=== PATIENT | male | born 1990 | race Caucasian/White ===

== ENCOUNTER 2016-06-10 13:39 | Emergency (ER) | payer OTHER, MEDICAID ==
[2016-06-10 13:51] VITALS: TEMP 98.1
--- NOTE | 2016-06-10 13:55 | CPEKG ---
Heart Rate: 75 RR Interval: 800 P-R Interval: 116 QRSD Interval: 78 QT Interval: 400 QTC Interval: 447 P [place]: 7 QRS [place]: 24 T Wave [place]: 12 EKG Severity - BORDERLINE ECG - EKG Impression: SINUS RHYTHM EKG Impression: INFERIOR Q WAVES, PROBABLY NORMAL VARIATION Electronically Signed By: Cresencio Tucker 10-Jun-2016 17:24:57
[2016-06-10 14:25] LABS: % IMMATURE GRANULYOCYTES 0.4 % (0.0-1.1); ABSOLUTE IMMATURE GRANULOCYTES 0.02 10^3/uL (0.00-0.10); ADD DIFF? NO; ADD MORPH? NO; ADD SCAN? NO; ATYPICAL LYMPHOCYTE FLAG 50 (0-99); FRAGMENT RBC FLAG 20 (0-99); HEMATOCRIT 29.3 % (40.0-51.0); HEMOGLOBIN 8.8 g/dL (13.7-17.5); LEFT SHIFT FLG 0 (0-99); LIPEMIA HEMOLYSIS FLAG 80 (0-99); MEAN CELL HEMOGLOBIN 21.2 pg (27.9-34.1); MEAN CELL VOLUME 70.6 fL (81.5-99.8); MEAN PLATELET VOLUME 11.7 fL (8.7-11.7); PLATELET CLUMPS FLAG 0 (0-99); PLATELET COUNT 191 10^3/uL (150-400); RED BLOOD CELL COUNT 4.15 10^6/uL (4.40-6.38); RED CELL DISTRIBUTION WIDTH 17.9 % (11.5-15.2)
[2016-06-10] MEDS ORDERED: LORazepam 2 MG/ML INJ IVP ONE (14:40)
[2016-06-10] MEDS ORDERED: KETOROLAC 30 MG/1 ML SDV IVP ONE (14:40)
--- NOTE | 2016-06-10 14:40 | EDPHY ---
H & P Time Seen by Provider: 06/10/16 14:09 HPI/ROS: Chief complaint. Chest pain HPI. 26-year-old male constant chest discomfort since yesterday. Denies trauma. The pain is behind his sternum and feels spasm. Some nausea. He notes that the discomfort goes to his left arm. It is worse with deep breathing. No fever cough. He has had similar symptoms previously usually relieved by Xanax. No unusual leg pain swelling. ROS Constitutional. no fever/chills, no weakness Eyes. no problems with vision ENT. no sore throat, no nasal drainage Cardiovascular. Chest pain Respiratory. no shortness of breath, no cough Abdominal. Nausea . no problems urinating MS. no calf pain/swelling, no neck/back pain, no joint pain Skin. no rash Lymph. no swollen glands Neuro. no headache, no dizziness, no difficulty walking or with speech Past Medical/Surgical History: Past medical history cerebral palsy, intermittent chest pain, depression, migraines, anxiety, PTSD Social History: Single, nonsmoker, no alcohol Smoking Status: Never smoked Physical Exam: General Appearance: Alert well-developed male mild distress vital signs are stable Eyes: Pupils equal and round no pallor or injection. ENT, Mouth: Mucous membranes are moist. Respiratory: There are no retractions, lungs are clear to auscultation. Cardiovascular: Regular rate and rhythm. Chest wall is tender to palpation over the sternum and recreates the patient's symptoms Gastrointestinal: Abdomen is soft and nontender, no masses, bowel sounds normal. Neurological: Awake and alert, sensory and motor exams grossly normal. Skin: Warm and dry, no rashes. Musculoskeletal: Neck is supple nontender. Extremities symmetrical, full range of motion. Psychiatric: Patient is oriented X 3, there is no agitation. Constitutional: Initial Vital Signs Temperature (C) 36.7 C 06/10/16 13:48 Heart Rate 72 06/10/16 13:48 Respiratory Rate 16 06/10/16 13:48 Blood Pressure 110/67 06/10/16 13:48 O2 Sat (%) 97 06/10/16 13:48 O2 Delivery Mode Room Air Allergies/Adverse Reactions: Penicillins Allergy (Verified 04/25/16 15:17) Home Medications: Medication Instructions Recorded MOTRIN 04/04/15 Tylenol 04/04/15 Prozac 10 MG (RX) 04/20/15 Zofrsulema 06/27/15 Ryan 05/21/16 Medical Decision Making - Diagnostics EKG Interpretation: EKG interpreted by me shows normal sinus rhythm with normal interval and axis. QRS is otherwise normal without with appearance of LVH by voltage. No significant ST elevation or depression. No arrhythmia. The rate is 75 Imaging: CT scan chest shows an indeterminate angiogram reviewed with both Dr. Steiner and Shanita. Ultrasound of both legs shows no evidence for DVT Procedures: IV normal saline. Ativan and Toradol IV ED Course/Re-evaluation: Re-evaluation patient is stable and actually feeling better. My suspicion for PE is relatively low. He is not tachycardic or hypoxic. He has tenderness on his sternum to palpation at recreates his pain. We will perform bilateral leg ultrasounds. The patient is really not a good candidate for anticoagulation re-evaluation at 5:45 p.m.. Patient is stable. Patient and I discussed imaging lab results. We discussed treatment plan including criteria for return importance of follow-up and further evaluation. He expresses understanding Differential Diagnosis: I considered acute coronary syndrome, pneumonia, pulmonary embolus. Patient is tender to palpation of the sternum recreating his symptoms. My suspicion for pulmonary embolus is low. This is likely musculoskeletal - Data Points Laboratory Results: Laboratory Results 06/10/16 14:15 06/10/16 14:15 06/10/16 06/10/16 16:55 14:15 WBC 4.79 10^3/uL (3.80-9.50) RBC 4.15 L 10^6/uL (4.40-6.38) Hgb 8.8 L g/dL (13.7-17.5) Hct 29.3 L % (40.0-51.0) MCV 70.6 L fL (81.5-99.8) MCH 21.2 L pg (27.9-34.1) MCHC 30.0 L g/dL (32.4-36.7) RDW 17.9 H % (11.5-15.2) Plt Count 191 10^3/uL (150-400) MPV 11.7 fL (8.7-11.7) Neut % (Auto) 65.2 % (39.3-74.2) Lymph % (Auto) 27.1 % (15.0-45.0) [place] % (Auto) 5.6 % (4.5-13.0) Eos % (Auto) 1.5 % (0.6-7.6) Baso % (Auto) 0.2 L % (0.3-1.7) Nucleat RBC Rel Count 0.0 % (0.0-0.2) Absolute Neuts (auto) 3.12 10^3/uL (1.70-6.50) Absolute Lymphs (auto) 1.30 10^3/uL (1.00-3.00) Absolute Monos (auto) 0.27 L 10^3/uL (0.30-0.80) Absolute Eos (auto) 0.07 10^3/uL (0.03-0.40) Absolute Basos (auto) 0.01 L 10^3/uL (0.02-0.10) Absolute Nucleated RBC 0.00 10^3/uL (0-0.01) Immature Gran % 0.4 % (0.0-1.1) Immature Gran # 0.02 10^3/uL (0.00-0.10) D-Dimer 0.51 H ug/mLFEU (0.00-0.50) Sodium 145 H mEq/L (134-144) Potassium 4.3 mEq/L (3.5-5.2) Chloride 108 mEq/L (97-110) Carbon Dioxide 24 mEq/l (22-31) Anion Gap 13 mEq/L (8-16) BUN 12 mg/dL (7-23) Creatinine 0.5 L mg/dL (0.7-1.3) Estimated GFR > 60 Glucose 81 mg/dL (70-100) Calcium 8.8 mg/dL (8.5-10.4) Troponin I < 0.012 ng/mL < 0.012 ng/mL (0-0.034) (0-0.034) Medications Given: Discontinued Medications Sodium Chloride (Ns) 1,000 mls @ 0 mls/hr IV ONCE ONE PRN Reason: Wide Open Stop: 06/10/16 15:31 Last Admin: 06/10/16 16:22 Dose: 1,000 mls Ketorolac Tromethamine (Toradol) 30 mg IVP EDNOW ONE Stop: 06/10/16 14:41 Last Admin: 06/10/16 15:10 Dose: 30 mg Lorazepam (Ativan Injection) 1 mg IVP EDNOW ONE Stop: 06/10/16 14:41 Last Admin: 06/10/16 15:10 Dose: 1 mg Departure - Departure Disposition: Home, Routine, Self-Care Clinical Impression: Chest wall pain Condition: Good Instructions: Chest Wall Pain (ED) Additional Instructions: Ibuprofen 400 mg every 6 hours for discomfort. Return for worsening pain, breathing. Follow up with your regular physician in [place] on Sunday without fail.
[2016-06-10 14:44] LABS: ANION GAP 13 mEq/L (8-16); CALCIUM 8.8 mg/dL (8.5-10.4); CARBON DIOXIDE 24 mEq/l (22-31); CHLORIDE 108 mEq/L (97-110); CREATININE 0.5 mg/dL (0.7-1.3); GLOMERULAR FILTRATION RATE > 60; GLUCOSE 81 mg/dL (70-100); POTASSIUM 4.3 mEq/L (3.5-5.2); SODIUM 145 mEq/L (134-144)
[2016-06-10 14:56] LABS: TROPONIN I < 0.012 ng/mL (0-0.034)
[2016-06-10] MEDS ORDERED: NS 1,000 ML IV ONE (15:30)
[2016-06-10] MEDS ORDERED: IOPAMIDOL (ISOVUE 370) 75 ML BTL IV ONE (15:34)
--- NOTE | 2016-06-10 15:55 | DX ---
PA and Lateral Chest History: Chest pain. Findings: The heart and mediastinum are normal. Pulmonary vascularity is normal. The lungs are clear. There is no pleural fluid. A pneumothorax is not identified. Rods and pedicle screws extend from T4 caudally into the lumbar region. Impression: Chest negative for acute abnormality. Postoperative changes are seen. Specifically, a sindy rce for chest pain is not identified.
--- NOTE | 2016-06-10 16:27 | CT ---
CT Pulmonary Angiogram Clinical Indications: Possible shortness of breath and chest pain in a 26-year-old male with cervica l palsy; accurate clinical history is difficult to obtain. Technique: Thinly collimated multidetector helical CT imaging was performed through the chest while 90 mL of Isovue-370 were injected intravenously without complication. The images were obtained at 4 mm thickness and reconstructed at 1.5 mm thickness. Sagittal and coronal reconstructions were perform ed. The examination is reviewed on the workstation by the interpreting physician at multiple window/l evel settings. The study is significantly compromised by the patient's inability to fully cooperate w ith the study. There is breathing motion artifact. Additionally there is beam-hardening artifact rela lois to the extensive spinal hardware. Dose reduction techniques were utilized. Findings: Chest: Heart size is normal. No pericardial or pleural effusions are seen. Hilar and mediastinal co ntours are normal. There are no masses or noncalcified pulmonary nodules. There is a scoliotic curvat ure end rods and pedicle screws are seen in the thoracic spine. There is pleural thickening along the posterior left hemithorax. There are a few scattered areas of ground-glass opacity. The upper abdomen is negative for acute abnormality on this arterial phase study. CT Pulmonary Angiogram: The pulmonary arterial system is well opacified. No intraluminal filling d efects are seen to suggest acute or chronic thrombopulmonary embolic disease. No vascular malformatio ns are seen. The thoracic aorta has a normal contour without evidence of aneurysm or dissection. Impression: 1. The examination is nondiagnostic due to motion and beam hardening artifact. There is no definite c onvincing evidence of pulmonary embolic disease. 2. See above report for additional findings. A preliminary report was called to Dr. Cresencio Tucker 1620 hours in the Emergency Department.
--- NOTE | 2016-06-10 17:44 | US ---
Bilateral Lower Extremity Venous Duplex Doppler Study Clinical Indications: 26-year-old male with cerebral palsy and chest pain, and a nondiagnostic CTPA. Rule out DVT. Technique: A high-frequency transducer was used for compression imaging and Doppler study of the haley p veins of both legs, from the upper calves to the groins. Pulsed Doppler and color Doppler were util ized, along with various maneuvers to assess flow in the deep veins. The executive talent acquisition consultant indicated the st udy was technically limited secondary to the patient's CP and leg contractures, and it was difficult to do compression. Comparison Study: None. Findings: Right Leg: The deep veins of the groin, thigh, knee, and upper calf are displayed, and compressible. Doppler flow patterns are unremarkable. There is no evidence of deep venous thrombosis. Left Leg: The deep veins of the groin, thigh, knee, and upper calf are displayed and compressible. Doppler flow patterns are unremarkable. There is no evidence of deep venous thrombosis. There is normal compression of the greater saphenous veins, without superficial thrombosis. The popli teal fossa is unremarkable. Impression: The study is technically limited, but there is no sonographic evidence of right or left leg DVT. Results were called to Dr. Cresencio Tucker. A test result has been communicated to a licensed care provider and documented in [employer], 5:41:38 PM , 06/10/2016, [employer] Message ID [id number].
[2016-06-10 18:30] VITALS: BP 110/75; PULSE 85; RESP 12; O2SAT 98
== END 2016-06-10 18:28 | disposition home or self-care (01) ==
LOC: EDUNIT#
DX: R07.89 Other chest pain (principal)
CPT/HCPCS: 71010; 71275; 93005; 93970; 96374; 96375; 99285; J1885

== ENCOUNTER 2016-06-13 14:43 | Emergency (ER) | payer OTHER, MEDICAID ==
--- NOTE | 2016-06-13 14:55 | CPEKG ---
Heart Rate: 78 RR Interval: 769 P-R Interval: 128 QRSD Interval: 76 QT Interval: 376 QTC Interval: 429 P [place]: 11 QRS [place]: 32 T Wave [place]: 12 EKG Severity - ABNORMAL ECG - EKG Impression: SINUS RHYTHM EKG Impression: NONSPECIFIC T ABNORMALITIES, ANTERIOR LEADS Electronically Signed By: Viarl Martinez 13-Jun-2016 23:56:59
[2016-06-13 14:58] VITALS: TEMP 97.9
[2016-06-13] MEDS ORDERED: NS 500 ML IV ONE (15:31)
--- NOTE | 2016-06-13 15:31 | EDPHY ---
H & P Time Seen by Provider: 06/13/16 15:00 HPI/ROS: HPI Chest pain. 26-year-old male by ambulance. This patient reports that he has had chest pain which has been constant since 5:30 p.m. yesterday. He describes it as sharp and mid substernal. He tells me that he has not had this chest pain in the past. He denies any previous coronary artery disease history. He has had mild associated shortness of breath. No cough. No fever. ROS: Constitutional: No fever, no chills. No weakness. Eyes: No discharge. No changes in vision. ENT: No sore throat. No nasal congestion or rhinorrhea. Respiratory: No cough. As above. Cardiac: As above, no palpitations. Gastrointestinal: No abdominal pain, no vomiting, no diarrhea. Genitourinary: No hematuria. No dysuria or increased frequency with urination. Musculoskeletal: No back pain. No neck pain. No myalgias or arthralgias. Skin: No rashes. Neurological: No headache. No focal weakness or altered sensation. Past medical history: Cerebral palsy, PTSD, anxiety, depression, intermittent chest pain. On review of his medical records he was just seen here on June 10 for the exact same complaint. He had 2-troponins at that time. He had a slightly elevated D-dimer at 0.51. His CT pulmonary angiogram did not show evidence of PE or dissection. He had negative venous Doppler ultrasounds of his lower extremities. Social history: Physical Exam: General Appearance: Alert, he appears comfortable. This patient is responding to questions appropriately and in full sentences. This patient appears well- hydrated and well-nourished. Eyes: Pupils equal and round no pallor or injection. No lid edema, erythema or injection. Respiratory: There are no retractions, lungs are clear to auscultation anteriorly with good air movement bilaterally. Cardiovascular: Regular rate and rhythm. No murmur. Pectus excavatum noted. Gastrointestinal: Abdomen is soft and nontender, no masses, bowel sounds normal. No focal tenderness at McBurney's point. No Pierson sign. Neurological: Motor sensory function is at baseline. Skin: Warm and dry, no rashes. Musculoskeletal: Neck is supple and nontender. Extremities are symmetrical. All joints range without pain or impingement. Psychiatric: No agitation. No depression. Database: EKG: EKG time is 2:52 p.m.; EKG shows a narrow complex normal sinus rhythm with a ventricular rate of 78. The MI, QRS, QT intervals are within normal limits. There are no ST-T wave changes indicative of ischemic or injury pattern. No evidence of right heart strain. Interpreted by me. Imaging: Chest x-ray AP portable; the cardiac mediastinal silhouette is unremarkable. No evidence of infiltrate or pneumothorax. No acute cardiopulmonary disease process noted. Spinal rods noted. No change from prior study from June 10. Interpreted by me. Procedures: Emergency department course: IV placed in triage. Patient placed on a monitor. After my evaluation EKG performed. He has a narcotic caution note associated with his chart. He will be given 20 mg of Pepcid IV and a GI cocktail. 4:25 p.m., patient re-evaluated. Resting comfortably at this time. No chest pain. I discussed the results of his diagnostic studies with him. I explained that I reviewed his prior workup. I feel that a cardiac etiology, aortic dissection, pulmonary embolism are very unlikely in this patient. He does feel comfortable going home at this time. Follow-up and return to emergency department precautions were reviewed with him. All of his questions were answered. He was discharged from emergency department in good condition. Differential Diagnosis: The differential diagnosis on this patient includes but is not limited to musculoskeletal chest pain, soft vaginal spasm, GERD. Acute coronary syndrome, aortic dissection, pulmonary embolism, pneumothorax, pneumonitis, pericarditis, myocarditis unlikely. This represents a partial list of diagnoses considered. These considerations are based on history, physical exam, past history, reassessment and diagnostic testing. Smoking Status: Never smoked Constitutional: Initial Vital Signs Temperature (C) 36.6 C 06/13/16 14:57 Heart Rate 80 06/13/16 14:57 Respiratory Rate 16 06/13/16 14:57 Blood Pressure 123/70 H 06/13/16 14:57 O2 Sat (%) 97 06/13/16 14:57 O2 Delivery Mode Room Air Allergies/Adverse Reactions: Penicillins Allergy (Verified 06/13/16 14:54) Home Medications: Medication Instructions Recorded NK [No Known Home Meds] 06/13/16 Medical Decision Making - Data Points Laboratory Results: Laboratory Results 06/13/16 15:03 06/13/16 15:03 06/13/16 15:03 WBC 4.95 10^3/uL (3.80-9.50) RBC 5.11 10^6/uL (4.40-6.38) Hgb 10.7 L g/dL (13.7-17.5) Hct 35.8 L % (40.0-51.0) MCV 70.1 L fL (81.5-99.8) MCH 20.9 L pg (27.9-34.1) MCHC 29.9 L g/dL (32.4-36.7) RDW 18.1 H % (11.5-15.2) Plt Count 217 10^3/uL (150-400) MPV 11.1 fL (8.7-11.7) Neut % (Auto) 61.4 % (39.3-74.2) Lymph % (Auto) 30.7 % (15.0-45.0) [place] % (Auto) 5.7 % (4.5-13.0) Eos % (Auto) 1.6 % (0.6-7.6) Baso % (Auto) 0.4 % (0.3-1.7) Nucleat RBC Rel Count 0.0 % (0.0-0.2) Absolute Neuts (auto) 3.04 10^3/uL (1.70-6.50) Absolute Lymphs (auto) 1.52 10^3/uL (1.00-3.00) Absolute Monos (auto) 0.28 L 10^3/uL (0.30-0.80) Absolute Eos (auto) 0.08 10^3/uL (0.03-0.40) Absolute Basos (auto) 0.02 10^3/uL (0.02-0.10) Absolute Nucleated RBC 0.00 10^3/uL (0-0.01) Immature Gran % 0.2 % (0.0-1.1) Immature Gran # 0.01 10^3/uL (0.00-0.10) Sodium 145 H mEq/L (134-144) Potassium 4.4 mEq/L (3.5-5.2) Chloride 105 mEq/L (97-110) Carbon Dioxide 25 mEq/l (22-31) Anion Gap 15 mEq/L (8-16) BUN 12 mg/dL (7-23) Creatinine 0.7 mg/dL (0.7-1.3) Estimated GFR > 60 Glucose 84 mg/dL (70-100) Calcium 9.4 mg/dL (8.5-10.4) Troponin I < 0.012 ng/mL (0-0.034) Medications Given: Discontinued Medications Sodium Chloride (Ns) 500 mls @ 0 mls/hr IV ONCE ONE PRN Reason: As Directed Stop: 06/13/16 15:32 Last Admin: 06/13/16 15:55 Dose: 500 mls Famotidine/Sodium Chloride (Pepcid 20 Mg (Premix)) 50 mls @ 200 mls/hr IV EDNOW ONE Stop: 06/13/16 15:47 Last Admin: 06/13/16 15:54 Dose: 50 mls Miscellaneous Medication (Gi Cocktail) 55 ml PO EDNOW ONE Stop: 06/13/16 15:34 Last Admin: 06/13/16 15:55 Dose: 55 ml Departure - Departure Disposition: Home, Routine, Self-Care Clinical Impression: Chest pain, non-cardiac Condition: Good Instructions: Noncardiac Chest Pain (ED) Additional Instructions: Read and follow provided instructions. Follow-up with your primary care physician in 1-2 days for re-evaluation. I have also provided you with a referral to our cardiology group. Call their office or have friends and family call this afternoon for follow-up appointment. Return to the emergency department for worsening symptoms or other serious concerns. Referrals: Patient,NotPresent [Unknown] - As per Instructions Gigi Gregg MD [Medical Doctor] - As per Instructions
[2016-06-13] MEDS ORDERED: FAMOTIDINE 20 MG/NACL 50 ML IV ONE (15:33)
[2016-06-13] MEDS ORDERED: MAALOX/LIDO/HYOSC GI COCKTAIL 55 ML BOTTLE PO ONE (15:33)
[2016-06-13 15:38] LABS: % IMMATURE GRANULYOCYTES 0.2 % (0.0-1.1); ABSOLUTE IMMATURE GRANULOCYTES 0.01 10^3/uL (0.00-0.10); ADD DIFF? NO; ADD MORPH? NO; ADD SCAN? NO; ATYPICAL LYMPHOCYTE FLAG 10 (0-99); FRAGMENT RBC FLAG 40 (0-99); HEMATOCRIT 35.8 % (40.0-51.0); HEMOGLOBIN 10.7 g/dL (13.7-17.5); LEFT SHIFT FLG 0 (0-99); LIPEMIA HEMOLYSIS FLAG 70 (0-99); MEAN CELL HEMOGLOBIN 20.9 pg (27.9-34.1); MEAN CELL HEMOGLOBIN CONCENTR. 29.9 g/dL (32.4-36.7); MEAN CELL VOLUME 70.1 fL (81.5-99.8); MEAN PLATELET VOLUME 11.1 fL (8.7-11.7); PLATELET CLUMPS FLAG 10 (0-99); PLATELET COUNT 217 10^3/uL (150-400); RED BLOOD CELL COUNT 5.11 10^6/uL (4.40-6.38); RED CELL DISTRIBUTION WIDTH 18.1 % (11.5-15.2)
[2016-06-13 15:47] LABS: ANION GAP 15 mEq/L (8-16); CALCIUM 9.4 mg/dL (8.5-10.4); CARBON DIOXIDE 25 mEq/l (22-31); CHLORIDE 105 mEq/L (97-110); CREATININE 0.7 mg/dL (0.7-1.3); GLOMERULAR FILTRATION RATE > 60; GLUCOSE 84 mg/dL (70-100); POTASSIUM 4.4 mEq/L (3.5-5.2); SODIUM 145 mEq/L (134-144)
[2016-06-13 15:56] LABS: TROPONIN I < 0.012 ng/mL (0-0.034)
[2016-06-13 17:03] VITALS: RESP 18
--- NOTE | 2016-06-13 17:30 | DX ---
Portable Chest 3:56 PM History: Chest pain Comparison: 06/10/2016 Findings: Lungs clear. Heart stable. No pleural effusion or pneumothorax. Orthopedic fixation hardwar e remains overlying the mid thoracic spine extending into the lumbar region. EKG leads overlie the ch est. Impression: Nothing acute identified.
[2016-06-13 18:52] VITALS: BP 116/86; PULSE 82; O2SAT 95
== END 2016-06-13 19:28 | disposition home or self-care (01) ==
LOC: EDUNIT#
DX: R07.89 Other chest pain (principal)
CPT/HCPCS: 96374

== ENCOUNTER 2016-07-08 12:47 | Emergency (ER) | payer OTHER, MEDICAID ==
[~2016-07-08 12:47] MED LIST: CEPHALEXIN 500 MG CAP PO SCH; TAMSULOSIN HCL 0.4 MG CAP PO SCH
[2016-07-08 13:16] VITALS: TEMP 98.2
[2016-07-08] MEDS ORDERED: NS 1,000 ML IV ONE (13:19)
[2016-07-08] MEDS ORDERED: ONDANSETRON 4 MG/2 ML VIAL IVP ONE (13:19)
--- NOTE | 2016-07-08 13:19 | EDPHY ---
H & P Time Seen by Provider: 07/08/16 12:59 HPI/ROS: CHIEF COMPLAINT: the right-sided abdominal pain HISTORY OF PRESENT ILLNESS: The patient is a 26-year-old male with a history of CP who presents to the emergency department with right-sided abdominal pain starting 20-30 minutes ago. He presents to the ER via EMS. Patient states his pain he came on fairly abruptly. It is sharp and stabbing. It does not radiate to his back. Patient states he has a suprapubic catheter and has no lower abdominal discomfort. His catheter has normal appearing in volume production. Patient denies fevers or chills. No nausea vomiting. No shortness of breath or chest pain. REVIEW OF SYSTEMS: My complete review of systems is negative except as mentioned in the HPI. Past Medical/Surgical History: Includes CP, PTSD, anxiety, depression, migraines Past surgical history: Includes back surgery Social history: The patient does not smoke. Occasionally uses alcohol. He denies drug use. Smoking Status: Never smoked Physical Exam: Vitals noted GENERAL: No acute distress, alert. HEENT: Eyes normal to inspection, normal pharynx, no signs of dehydration. NECK: No thyromegaly, no lymphadenopathy, supple. RESPIRATORY: Clear to auscultation bilaterally, no rales, rhonchi or wheezing. CVS: Regular rate and rhythm, no rubs, murmurs, or gallops. ABDOMEN: Soft, the right upper quadrant tenderness to palpation. Right mid abdomen tenderness to palpation. Ventral hernia that is reducible. No distention. No organomegaly. Suprapubic catheter in place. Clean dry and intact.. BACK: Normal to inspection, no CVA tenderness. SKIN: Normal color, no rash, warm, dry. No pallor. EXTREMITIES: contracted upper extremities. No pedal edema, no calf tenderness. No cords. No joint swelling. NEURO/PSYCH: [Alert and oriented x3, normal mood and affect. The patient has contracted upper extremities. He is able to make gross movements. He is able to grossly move his lower extremities as well. Gross sensation is intact in all extremities. Constitutional: Initial Vital Signs Temperature (C) 36.8 C 07/08/16 13:14 Heart Rate 67 07/08/16 13:14 Respiratory Rate 20 07/08/16 13:14 Blood Pressure 108/68 07/08/16 13:14 O2 Sat (%) 98 07/08/16 13:14 O2 Delivery Mode Room Air Allergies/Adverse Reactions: Penicillins Allergy (Verified 06/13/16 14:54) Home Medications: Medication Instructions Recorded Cephalexin [Keflex (*)] 500 mg PO QID 7 Days 07/08/16 Hydrocodone/APAP 5/325 [[place] 1 - 2 tab PO Q4 #11 tab 07/08/16 5/325 (RX)] Tamsulosin HCl [Flomax] 0.4 mg PO DAILY #4 cap 07/08/16 Medical Decision Making ED Course/Re-evaluation: In the emergency department I discussed possible etiologies with the patient. I answered all his questions. I discussed the treatment plan. The patient was given morphine 4 mg IV and Zofran 4 mg IV for nausea and pain. Laboratory studies and CT were ordered. Rechecked the patient on numerous occasions. On 2 occasions patient was sleeping when I entered the room. He appeared to be comfortable. CT of the abdomen pelvis: Patient was noted to have a small ureteral stone on the right Dr. Armen Smith. Please refer to his dictated report. Normal gallbladder. Normal appendix. No hydronephrosis. Patient was given Rocephin 1 g IV. Patient is noted to have a suprapubic catheter. UA was positive for possible urinary tract infection. Patient also has a small stone on CT. Patient was also given Toradol 30 mg IV for pain. Additionally the patient was given Flomax 0.4 mg orally. I discussed the results with the patient. I answered all his questions. Case management was involved prior to discharge home. I rechecked the patient prior to leaving. He was comfortable. His pain resolved. Abdomen was soft, nontender nondistended. Patient was given warnings prior to leaving. He is aware he needs to take his entire course of antibiotics. Differential Diagnosis: My differential includes but is not limited to cholecystitis, pancreatitis, appendicitis, cholangitis, small-bowel obstruction, perforation, abscess, fistula - Data Points Laboratory Results: Laboratory Results 07/08/16 13:45 07/08/16 13:45 07/08/16 13:45 WBC 5.62 10^3/uL (3.80-9.50) RBC 4.62 10^6/uL (4.40-6.38) Hgb 10.0 L g/dL (13.7-17.5) Hct 32.5 L % (40.0-51.0) MCV 70.3 L fL (81.5-99.8) MCH 21.6 L pg (27.9-34.1) MCHC 30.8 L g/dL (32.4-36.7) RDW 16.9 H % (11.5-15.2) Plt Count 145 L 10^3/uL (150-400) MPV TNP Neut % (Auto) 66.0 % (39.3-74.2) Lymph % (Auto) 25.8 % (15.0-45.0) [place] % (Auto) 6.2 % (4.5-13.0) Eos % (Auto) 1.4 % (0.6-7.6) Baso % (Auto) 0.4 % (0.3-1.7) Nucleat RBC Rel Count 0.0 % (0.0-0.2) Absolute Neuts (auto) 3.71 10^3/uL (1.70-6.50) Absolute Lymphs (auto) 1.45 10^3/uL (1.00-3.00) Absolute Monos (auto) 0.35 10^3/uL (0.30-0.80) Absolute Eos (auto) 0.08 10^3/uL (0.03-0.40) Absolute Basos (auto) 0.02 10^3/uL (0.02-0.10) Absolute Nucleated RBC 0.00 10^3/uL (0-0.01) Immature Gran % 0.2 % (0.0-1.1) Immature Gran # 0.01 10^3/uL (0.00-0.10) Sodium 141 mEq/L (134-144) Potassium 4.3 mEq/L (3.5-5.2) Chloride 108 mEq/L (97-110) Carbon Dioxide 22 mEq/l (22-31) Anion Gap 11 mEq/L (8-16) BUN 16 mg/dL (7-23) Creatinine 0.5 L mg/dL (0.7-1.3) Estimated GFR > 60 Glucose 78 mg/dL (70-100) Calcium 9.2 mg/dL (8.5-10.4) Total Bilirubin 0.6 mg/dL (0.1-1.4) Conjugated Bilirubin 0.3 mg/dL (0.0-0.5) Unconjugated Bilirubin 0.3 mg/dL (0.0-1.1) AST 25 IU/L (17-59) ALT 37 IU/L (21-72) Alkaline Phosphatase 73 IU/L (38-126) Total Protein 7.2 g/dL (6.3-8.2) Albumin 3.9 g/dL (3.5-5.0) Lipase 36.0 IU/L (23-300) Urine Color YELLOW Urine Appearance MODERATELY TURBID Urine pH 5.0 (5.0-7.5) Ur Specific [place] 1.019 (1.002-1.030) Urine Protein NEGATIVE (NEGATIVE) Urine Ketones TRACE H (NEGATIVE) Urine Blood 1+ H (NEGATIVE) Urine Nitrate POSITIVE H (NEGATIVE) Urine Bilirubin NEGATIVE (NEGATIVE) Urine Urobilinogen NEGATIVE EU (0.2-1.0) Ur Leukocyte Esterase 3+ H (NEGATIVE) Urine RBC 25-50 H /hpf (0-3) Urine WBC 50-182 H /hpf (0-3) Ur Epithelial Cells TRACE /lpf (NONE-1+) Urine Bacteria TRACE H /hpf (NONE SEEN) Urine Mucus 2+ H /lpf (NONE-1+) Urine Yeast PRESENT /hpf (NONE SEEN) Ur Culture Indicated? INDICATED H (NI) Urine Glucose NEGATIVE (NEGATIVE) Medications Given: Discontinued Medications Sodium Chloride (Ns) 1,000 mls @ 0 mls/hr IV ONCE ONE PRN Reason: Wide Open Stop: 07/08/16 13:20 Last Admin: 07/08/16 13:57 Dose: 1,000 mls Ketorolac Tromethamine (Toradol) 30 mg IVP EDNOW ONE Stop: 07/08/16 16:14 Last Admin: 07/08/16 16:20 Dose: 30 mg Morphine Sulfate (Morphine) 4 mg IVP EDNOW ONE Stop: 07/08/16 13:20 Last Admin: 07/08/16 13:57 Dose: 4 mg Ondansetron HCl (Zofran) 4 mg IVP EDNOW ONE Stop: 07/08/16 13:20 Last Admin: 07/08/16 13:58 Dose: 4 mg Departure - Departure Disposition: Home, Routine, Self-Care Clinical Impression: Right upper quadrant abdominal pain, Right mid abdominal pain, Kidney stone on right side UTI (urinary tract infection) Qualifiers: Urinary tract infection type: acute cystitis Hematuria presence: with hematuria Qualifier Code: (N30.01) Acute cystitis with hematuria Condition: Good Instructions: Urinary Tract Infection in Men (ED), Kidney Stones (ED) Additional Instructions: Take your entire course of antibiotics. Return with increasing pain, nausea, vomiting, fever or any other concerns. Referrals: Vish Mcnally MD [Medical Doctor] - As per Instructions Matilde Tucker MD [Medical Doctor] - 5-7 days, if not improved Prescriptions: Tamsulosin HCl [Flomax] 0.4 mg PO DAILY #4 cap Cephalexin [Keflex (*)] 500 mg PO QID 7 Days Hydrocodone/APAP 5/325 [[place] 5/325 (RX)] 1 - 2 tab PO Q4 #11 tab
[2016-07-08 13:56] LABS: % IMMATURE GRANULYOCYTES 0.2 % (0.0-1.1); ABSOLUTE IMMATURE GRANULOCYTES 0.01 10^3/uL (0.00-0.10); ADD DIFF? NO; ADD MORPH? NO; ADD SCAN? NO; ATYPICAL LYMPHOCYTE FLAG 0 (0-99); FRAGMENT RBC FLAG 20 (0-99); HEMATOCRIT 32.5 % (40.0-51.0); LEFT SHIFT FLG 0 (0-99); LIPEMIA HEMOLYSIS FLAG 80 (0-99); MEAN CELL HEMOGLOBIN 21.6 pg (27.9-34.1); MEAN CELL HEMOGLOBIN CONCENTR. 30.8 g/dL (32.4-36.7); MEAN CELL VOLUME 70.3 fL (81.5-99.8); PLATELET CLUMPS FLAG 40 (0-99); PLATELET COUNT 145 10^3/uL (150-400); RED BLOOD CELL COUNT 4.62 10^6/uL (4.40-6.38); RED CELL DISTRIBUTION WIDTH 16.9 % (11.5-15.2)
[2016-07-08 14:19] LABS: ALANINE AMINOTRANSFERASE 37 IU/L (21-72); ALBUMIN 3.9 g/dL (3.5-5.0); ALKALINE PHOSPHATASE 73 IU/L (38-126); ANION GAP 11 mEq/L (8-16); ASPARTATE AMINOTRANSFERASE 25 IU/L (17-59); BILIRUBIN,TOTAL 0.6 mg/dL (0.1-1.4); BILIRUBIN-CONJUGATED 0.3 mg/dL (0.0-0.5); BILIRUBIN-UNCONJUGATED 0.3 mg/dL (0.0-1.1); CALCIUM 9.2 mg/dL (8.5-10.4); CARBON DIOXIDE 22 mEq/l (22-31); CHLORIDE 108 mEq/L (97-110); CREATININE 0.5 mg/dL (0.7-1.3); GLOMERULAR FILTRATION RATE > 60; GLUCOSE 78 mg/dL (70-100); POTASSIUM 4.3 mEq/L (3.5-5.2); SODIUM 141 mEq/L (134-144); TOTAL PROTEIN 7.2 g/dL (6.3-8.2)
[2016-07-08 14:27] LABS: COLOR YELLOW; LEUKOCYTE ESTERASE,URINE 3+ (NEGATIVE); NITRITE,URINE POSITIVE (NEGATIVE)
[2016-07-08 14:30] LABS: BACTERIA TRACE /hpf (NONE SEEN); MUCUS 2+ /lpf (NONE-1+); RBC,URINE 25-50 /hpf (0-3); WBC,URINE 50-182 /hpf (0-3); YEAST PRESENT /hpf (NONE SEEN)
[2016-07-08] MEDS ORDERED: IOPAMIDOL (ISOVUE-300) 100 ML BTL IV ONE (14:33)
--- NOTE | 2016-07-08 15:34 | CT ---
CT Abdomen and Pelvis With Contrast History: Sudden onset of right-sided abdominal pain 1 hour ago, cerebral palsy, suprapubic catheter, multiple back surgeries Technique: 128 slice volumetric data set helical CT obtained through the abdomen and pelvis during anitha pamela administration of 80 mL Isovue-300 nonionic contrast without complication. Images are reviewed on the computer workstation. Dose reduction techniques were utilized. Comparison: June 06, 2015 Findings: Heart size remains normal without pericardial effusion. Lung bases remain normally aerated without pleural fluid. Once again there is extensive streak artifact from the patient's thoracic, lum bar and sacral fusion hardware. There is little if any change in the patient's prominent lumbar lordo sis. No obvious hardware malalignment or failure is identified on the dealer development manager views. Abdomen- The prominent liver (18 cm) and spleen (13.6 cm) are both slightly larger than the previous study, but remain homogeneous. There is no biliary dilatation. The gallbladder, pancreas, and kidneys look normal. There is no obvious evidence of nephro lithiasis. There is equivocally a tiny nonobstru ctive right ureteral stone (axial image 174 series 4), not associated with hydroureter. Unfortunately this area is in the middle of streak artifact. The adrenal glands and retroperitoneum look normal. T here is no ascites or evidence for bowel obstruction. Pelvis: A normal appendix is present. There are no urinary bladder stones. . A cystostomy catheter re cassius inflated in the decompressed urinary bladder. There is no pelvic free fluid or evidence for pel nilda abscess. 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 Impression: Equivocal punctate right ureteral stone. Otherwise negative. Results called and discussed with JUSTIN FOFANA, at 07/08/2016 15:32 General information for patients regarding this examination can be found at [email or web address]. If you have questions or comments about this report, please contact me at [phone] (hospital) or [phone] (cell).
[2016-07-08] MEDS ORDERED: KETOROLAC 30 MG/1 ML SDV IVP ONE (16:13)
[2016-07-08 16:21] VITALS: PULSE 72; RESP 16; O2SAT 97
[2016-07-08] MEDS ORDERED: TAMSULOSIN HCL 0.4 MG CAP PO ONE (16:23)
[2016-07-08 17:30] VITALS: BP 108/68
== END 2016-07-08 17:44 | disposition home or self-care (01) ==
LOC: EDUNIT#
DX: N20.0 Calculus of kidney (principal); N30.01 Acute cystitis with hematuria; B96.20 Unspecified Escherichia coli [E. coli] as the cause of diseases classified elsewhere
CPT/HCPCS: 74177; 96361; 96374; 96375; 99285; J0696; J1885; J2405; Q9967

== ENCOUNTER 2016-07-29 13:13 | Emergency (ER) | payer OTHER, MEDICAID ==
[2016-07-29] MEDS ORDERED: METOCLOPRAMIDE 10 MG/2 ML VIAL IVP ONE (13:19)
[2016-07-29] MEDS ORDERED: DEXAMETHASONE 10 MG/ML VIAL IVP ONE (13:19)
[2016-07-29] MEDS ORDERED: LORazepam 2 MG/ML INJ IVP ONE (13:19)
[2016-07-29] MEDS ORDERED: KETOROLAC 30 MG/1 ML SDV IVP ONE (13:19)
--- NOTE | 2016-07-29 13:22 | EDPHY ---
H & P Time Seen by Provider: 07/29/16 13:16 HPI/ROS: CHIEF COMPLAINT: Recurrent migraine headache HISTORY OF PRESENT ILLNESS: The patient presents the emergency department with complaints of a typical moderate to severe migraine headache which began yesterday. The patient did take Benadryl and [id number] pain medications without improvement. The patient does have a history of chronic cerebral palsy. He gets migraine headaches sporadically. The patient denies recent fall or trauma. He denies acute numbness or weakness. He denies fever, cough, congestion or flu-like illness. The patient was last in the emergency department several months ago for migraine headache. The patient denies additional complaints. REVIEW OF SYSTEMS: A comprehensive 10 point review of systems is otherwise negative aside from elements mentioned in the history of present illness. Source: Patient Exam Limitations: No limitations - Medical/Surgical History Hx Asthma: No Hx Chronic Respiratory Disease: No Hx Diabetes: No Hx Cardiac Disease: No Hx Renal Disease: No Hx Cirrhosis: No Hx Alcoholism: No Hx HIV/AIDS: No Hx Splenectomy or Spleen Trauma: No Other PMH: CP, DEPRESSION, MIGRAINES, ANXIETY, PTSD, Cerebal Palsy, Low fundoplication. - Social History Smoking Status: Never smoked - Physical Exam Exam: General Appearance: Alert, no distress Eyes: Pupils equal and round no pallor or injection ENT, Mouth: Mucous membranes moist Respiratory: There are no retractions, lungs are clear to auscultation Cardiovascular: Regular rate and rhythm Gastrointestinal: Suprapubic catheter Neurological: Alert and oriented x4, motor examination consistent with his underlying cerebral palsy Skin: Warm and dry, no rashes Musculoskeletal: Neck is supple nontender Extremities: Contraction flexures bilateral upper and lower extremities Constitutional: Initial Vital Signs Temperature (C) 36.9 C 07/29/16 13:22 Heart Rate 88 07/29/16 13:22 Respiratory Rate 14 07/29/16 13:22 Blood Pressure 106/69 07/29/16 13:22 O2 Sat (%) 98 07/29/16 13:22 O2 Delivery Mode Room Air Allergies/Adverse Reactions: Penicillins Allergy (Verified 07/29/16 13:23) Home Medications: Medication Instructions Recorded Cephalexin [Keflex (*)] 500 mg PO QID 7 Days 07/08/16 Hydrocodone/APAP 5/325 [[place] 1 - 2 tab PO Q4 #11 tab 07/08/16 5/325 (RX)] Tamsulosin HCl [Flomax] 0.4 mg PO DAILY #4 cap 07/08/16 Medical Decision Making ED Course/Re-evaluation: The patient presents to the ED with a typical migraine headache. The patient had an IV established. He received IV Benadryl, Decadron and Reglan. The patient had serial examinations in the ED by myself over a 2 hour period. The patient was reexamined at 3:30 p.m. and reports his headache has resolved. The patient continues to have stable vital signs, no acute findings on his neurologic examination or clinical evidence of meningitis. The patient will be discharged home at this point time with instructions to return to the ED for recurrent symptoms or other concerns. Differential Diagnosis: Differential diagnosis considered includes tension headache, migraine headache, temporal arteritis, meningitis - Data Points Medications Given: Discontinued Medications Dexamethasone (Decadron Injection) 10 mg IVP EDNOW ONE Stop: 07/29/16 13:20 Last Admin: 07/29/16 13:43 Dose: 10 mg Diphenhydramine HCl (Benadryl Injection) 25 mg IVP EDNOW ONE Stop: 07/29/16 13:20 Last Admin: 07/29/16 13:43 Dose: 25 mg Ketorolac Tromethamine (Toradol) 30 mg IVP EDNOW ONE Stop: 07/29/16 13:20 Last Admin: 07/29/16 13:44 Dose: 30 mg Lorazepam (Ativan Injection) 1 mg IVP EDNOW ONE Stop: 07/29/16 13:20 Last Admin: 07/29/16 13:44 Dose: 1 mg Metoclopramide HCl (Reglan Injection) 10 mg IVP EDNOW ONE Stop: 07/29/16 13:20 Last Admin: 07/29/16 13:44 Dose: 10 mg Departure - Departure Disposition: Home, Routine, Self-Care Clinical Impression: Migraine headache Condition: Good Instructions: Migraine Headache (ED) Additional Instructions: 1. Take Ibuprofen or Motrin 600 mg by mouth three times a day. 2. Please return to the emergency department for markedly worsening symptoms or other concerns. Referrals: [facility],. [Clinic] - As per Instructions
[2016-07-29 13:23] VITALS: TEMP 98.4
[2016-07-29 14:28] VITALS: O2SAT 94
[2016-07-29 15:55] VITALS: BP 117/78; PULSE 80; RESP 14
== END 2016-07-29 15:55 | disposition home or self-care (01) ==
LOC: EDUNIT#
DX: G43.909 Migraine, unspecified, not intractable, without status migrainosus (principal)
CPT/HCPCS: 96374; 96375; 99284; J1200; J1885; J2765

== ENCOUNTER 2016-08-05 12:10 | Emergency (ER) | payer OTHER, MEDICAID ==
--- NOTE | 2016-08-05 12:54 | EDPHY ---
H & P Stated Complaint: anxiety and chest pain HPI/ROS: CHIEF COMPLAINT: Chest Pain HISTORY OF PRESENT ILLNESS: chest pain that started last night and worsened an hour ago. Retrosternal pain [id number]. Started as he was getting off the bus in his wheelchair. No nausea. No vomiting. No shortness of breath. No cough. No recent illness. No history of venous thrombolic event. No particular modifying factors for this. History of anxiety but does not feel this is related. REVIEW OF SYSTEMS: Ten systems reviewed and are negative unless otherwise noted in the HPI EXAMINATION: General Appearance: Alert, no distress. Contractures in all 4 limbs . Unkempt Head: normocephalic, atraumatic. Seborrhea Eyes: Pupils equal and round, no conjunctival pallor or injection ENT, Mouth: Mucous membranes moist . Uvula midline. Neck: Contractures but supple and nontender. Respiratory: Lungs are clear to auscultation . No wheezing, rhonchi or crackles. Cardiovascular: Regular rate and rhythm . No murmur. Pulses intact distally. reproduction of pain with palpation of the left side of the chest. Gastrointestinal: Abdomen is soft and nontender Neurological: A&O, nonfocal, Strength is symmetric Skin: Warm and dry, no rash Extremities: range of motion is baseline per patient with chronic contractures Psychiatric: Mood and affect normal DIFFERENTIAL DIAGNOSES: Including but not limited to in no particular order: Acute Chest Pain, ACS, Stable Angina, Pneumonia, PE, duodenitis, gastritis, esophagitis, GERD MDM: 12:50 p.m. chest pain with normal examination. EKG is pending. Troponin and chest x-ray in order. 2:15 p.m. Chest pain that is reproducible on examination. Troponins negative. EKG is unchanged. Chest x-ray unchanged from prior. Discharged home with over-the- counter anti-inflammatories and follow up with primary care physician. Patient is comfortable with this plan and discharged home in stable condition. EKG: Interpreted by Dr. Corrales Rate is 72 beats per minute. Normal sinus rhythm. Pr interval 124. QTC interval 388. Normal axis. No ST depression or elevation. T-waves inverted in AVR, V1, V2 and V3 but these are unchanged from June 13, 2016. interpretation : Normal sinus rhythm with chronic T-wave changes SUPERVISION: This patient was independently evaluated without the aide of supervising physician. Source: Patient, Old records Exam Limitations: No limitations - Personal History Current Tetanus/Diphtheria Vaccine: Yes Current Tetanus Diphtheria and Acellular Pertussis (TDAP): Yes Tetanus Vaccine Date: last 10 years - Medical/Surgical History Hx Asthma: No Hx Chronic Respiratory Disease: No Hx Diabetes: No Hx Cardiac Disease: No Hx Renal Disease: No Hx Cirrhosis: No Hx Alcoholism: No Hx HIV/AIDS: No Hx Splenectomy or Spleen Trauma: No Other PMH: CP, DEPRESSION, MIGRAINES, ANXIETY, PTSD, Cerebal Palsy, Low fundoplication. - Social History Smoking Status: Never smoked Constitutional: Initial Vital Signs Temperature (C) 97.5 F 08/05/16 12:17 Heart Rate 75 08/05/16 12:17 Respiratory Rate 18 08/05/16 12:17 Blood Pressure 112/72 08/05/16 12:17 O2 Sat (%) 95 08/05/16 12:17 O2 Delivery Mode Room Air Allergies/Adverse Reactions: Penicillins Allergy (Verified 07/29/16 13:23) Home Medications: Medication Instructions Recorded Cephalexin [Keflex (*)] 500 mg PO QID 7 Days 07/08/16 Hydrocodone/APAP 5/325 [[place] 1 - 2 tab PO Q4 #11 tab 07/08/16 5/325 (RX)] Tamsulosin HCl [Flomax] 0.4 mg PO DAILY #4 cap 07/08/16 Ibuprofen 600 mg PO Q8 PRN #15 tablet 08/05/16 Medical Decision Making - Data Points Laboratory Results: Laboratory Results 08/05/16 13:26 08/05/16 13:26 08/05/16 08/05/16 13:26 13:26 WBC 6.48 10^3/uL 10^3/uL (3.80-9.50) RBC 4.76 10^6/uL 10^6/uL (4.40-6.38) Hgb 10.3 g/dL L g/dL (13.7-17.5) Hct 33.9 % L % (40.0-51.0) MCV 71.2 fL L fL (81.5-99.8) MCH 21.6 pg L pg (27.9-34.1) MCHC 30.4 g/dL L g/dL (32.4-36.7) RDW 16.1 % H % (11.5-15.2) Plt Count 153 10^3/uL 10^3/uL (150-400) MPV 10.3 fL fL (8.7-11.7) Neut % (Auto) 65.8 % % (39.3-74.2) Lymph % (Auto) 24.8 % % (15.0-45.0) [place] % (Auto) 7.7 % % (4.5-13.0) Eos % (Auto) 1.2 % % (0.6-7.6) Baso % (Auto) 0.3 % % (0.3-1.7) Nucleat RBC Rel Count 0.0 % % (0.0-0.2) Absolute Neuts (auto) 4.26 10^3/uL 10^3/uL (1.70-6.50) Absolute Lymphs (auto) 1.61 10^3/uL 10^3/uL (1.00-3.00) Absolute Monos (auto) 0.50 10^3/uL 10^3/uL (0.30-0.80) Absolute Eos (auto) 0.08 10^3/uL 10^3/uL (0.03-0.40) Absolute Basos (auto) 0.02 10^3/uL 10^3/uL (0.02-0.10) Absolute Nucleated RBC 0.00 10^3/uL 10^3/uL (0-0.01) Immature Gran % 0.2 % % (0.0-1.1) Immature Gran # 0.01 10^3/uL 10^3/uL (0.00-0.10) Sodium 146 mEq/L H mEq/L (134-144) Potassium 4.6 mEq/L mEq/L (3.5-5.2) Chloride 108 mEq/L mEq/L (97-110) Carbon Dioxide 24 mEq/l mEq/l (22-31) Anion Gap 14 mEq/L mEq/L (8-16) BUN 17 mg/dL mg/dL (7-23) Creatinine 0.6 mg/dL L mg/dL (0.7-1.3) Estimated GFR > 60 Glucose 89 mg/dL mg/dL (70-100) Calcium 9.6 mg/dL mg/dL (8.5-10.4) Troponin I < 0.012 ng/mL ng/mL (0-0.034) Departure - Departure Disposition: Home, Routine, Self-Care Clinical Impression: Chest pain Qualifiers: Chest pain type: unspecified Qualified Code(s): R07.9 - Chest pain, unspecified Condition: Good Instructions: Chest Pain (ED) Additional Instructions: Follow up with primary care physician. [id number] ibuprofen or Aleve as needed. Return to ER for any worsening symptoms, shortness of breath, fever or chills Referrals: Patient,NotPresent [Unknown] - As per Instructions [facility],. [Clinic] - As per Instructions Prescriptions: Ibuprofen 600 mg PO Q8 PRN #15 tablet PRN Reason: Pain, Mild
--- NOTE | 2016-08-05 13:03 | CPEKG ---
Heart Rate: 72 RR Interval: 833 P-R Interval: 124 QRSD Interval: 82 QT Interval: 388 QTC Interval: 425 P [place]: 12 QRS [place]: 7 T Wave [place]: -7 EKG Severity - ABNORMAL ECG - EKG Impression: SINUS RHYTHM EKG Impression: INFERIOR Q WAVES, PROBABLY NORMAL VARIATION EKG Impression: NONSPECIFIC T ABNORMALITIES, ANTERIOR LEADS Electronically Signed By: Terry Corrales 05-Aug-2016 14:51:44
[2016-08-05 13:39] LABS: % IMMATURE GRANULYOCYTES 0.2 % (0.0-1.1); ABSOLUTE IMMATURE GRANULOCYTES 0.01 10^3/uL (0.00-0.10); ADD DIFF? NO; ADD MORPH? NO; ADD SCAN? NO; ATYPICAL LYMPHOCYTE FLAG 10 (0-99); FRAGMENT RBC FLAG 20 (0-99); HEMATOCRIT 33.9 % (40.0-51.0); HEMOGLOBIN 10.3 g/dL (13.7-17.5); LEFT SHIFT FLG 0 (0-99); LIPEMIA HEMOLYSIS FLAG 80 (0-99); MEAN CELL HEMOGLOBIN 21.6 pg (27.9-34.1); MEAN CELL HEMOGLOBIN CONCENTR. 30.4 g/dL (32.4-36.7); MEAN CELL VOLUME 71.2 fL (81.5-99.8); MEAN PLATELET VOLUME 10.3 fL (8.7-11.7); PLATELET CLUMPS FLAG 10 (0-99); PLATELET COUNT 153 10^3/uL (150-400); RED BLOOD CELL COUNT 4.76 10^6/uL (4.40-6.38); RED CELL DISTRIBUTION WIDTH 16.1 % (11.5-15.2)
[2016-08-05 13:59] LABS: ANION GAP 14 mEq/L (8-16); CALCIUM 9.6 mg/dL (8.5-10.4); CARBON DIOXIDE 24 mEq/l (22-31); CHLORIDE 108 mEq/L (97-110); CREATININE 0.6 mg/dL (0.7-1.3); GLOMERULAR FILTRATION RATE > 60; GLUCOSE 89 mg/dL (70-100); POTASSIUM 4.6 mEq/L (3.5-5.2); SODIUM 146 mEq/L (134-144)
[2016-08-05 14:09] LABS: TROPONIN I < 0.012 ng/mL (0-0.034)
[2016-08-05 14:36] VITALS: BP 93/51; PULSE 85; RESP 14; TEMP 98.4; O2SAT 95
== END 2016-08-05 14:36 | disposition home or self-care (01) ==
LOC: EDUNIT#
DX: R07.9 Chest pain, unspecified (principal)

== ENCOUNTER 2016-08-08 18:18 | Emergency (ER) | payer OTHER, MEDICAID ==
[2016-08-08 18:28] VITALS: TEMP 98.6
[2016-08-08] MEDS ORDERED: NS 500 ML IV ONE (18:37)
[2016-08-08] MEDS ORDERED: METOCLOPRAMIDE 10 MG/2 ML VIAL IVP ONE (18:38)
[2016-08-08] MEDS ORDERED: DEXAMETHASONE 10 MG/ML VIAL IVP ONE (18:38)
[2016-08-08] MEDS ORDERED: KETOROLAC 30 MG/1 ML SDV IVP ONE (18:38)
--- NOTE | 2016-08-08 18:43 | EDPHY ---
H & P Time Seen by Provider: 08/08/16 18:21 HPI/ROS: HPI Migraine headache. 26-year-old male by ambulance. He has a history of migraine headaches. He reports gradual onset of a typical migraine headache described as around the top of his head, aching. He had blurry vision before onset which is a typical prodrome for him. He has had some nausea but no vomiting. He reports that he took his sumatriptan but has had no relief. Onset of headache was at 2:30 p.m.. He denies any other symptoms. He reports this headache is typical of previous migraine headaches. He has had to come to the emergency department in the past for treatment of his migraine headaches. ROS: Constitutional: No fever, no chills. No weakness. Eyes: No discharge. No changes in vision. ENT: No sore throat. No nasal congestion or rhinorrhea. Respiratory: No cough. No shortness of breath. Cardiac: No chest pain, no palpitations. Gastrointestinal: No abdominal pain, no vomiting, no diarrhea. Genitourinary: No hematuria. No dysuria or increased frequency with urination. Musculoskeletal: No back pain. No neck pain. No myalgias or arthralgias. Skin: No rashes. Neurological: As above. No new focal weakness or altered sensation. Past medical history: Chest pain, depression, migraine headaches, anxiety, PTSD , cerebral palsy. Social history: Here by himself. Nonsmoker. Gets around by motorized chair. Physical Exam: General Appearance: Alert, no distress. This patient is responding to questions appropriately and in full sentences. This patient appears well- hydrated and well-nourished. Eyes: Pupils equal and round no pallor or injection. No lid edema, erythema or injection. No photophobia. No nystagmus. Respiratory: There are no retractions, lungs are clear to auscultation with good air movement bilaterally. Cardiovascular: Regular rate and rhythm. No murmur. Neurological: Motor sensory function is baseline. Skin: Warm and dry, no rashes. Musculoskeletal: Neck is supple and nontender. No pain on flexion of the neck. Psychiatric: No agitation. No depression. Database: EKG: Imaging: Procedures: Emergency department course: Patient is under a narcotic caution status. I discussed medicating him. He will be given 30 mg of IV Toradol, 10 mg of IV Reglan, 10 mg of IV Decadron and 25 mg of IV Benadryl. He had a normal recent creatinine on review of his previous blood work. No contraindications to NSAIDs. 8:30 p.m., patient re-evaluated. Sleeping comfortably. Easily arousable. Headache resolved. He feels comfortable going home and I feel he is safe for discharge. Follow-up and return to emergency department precautions discussed. All of his questions were answered. He was discharged in good condition. Differential Diagnosis: The differential diagnosis on this patient includes but is not limited to migraine headache. Subarachnoid hemorrhage, temporal arteritis, meningitis, encephalitis, cavernous sinus thrombosis, sagittal sinus thrombosis unlikely. This represents a partial list of diagnoses considered. These considerations are based on history, physical exam, past history, reassessment and diagnostic testing. Smoking Status: Never smoked Constitutional: Initial Vital Signs Temperature (C) 37 C 08/08/16 18:24 Heart Rate 95 08/08/16 18:24 Respiratory Rate 18 08/08/16 18:24 Blood Pressure 131/77 H 08/08/16 18:24 O2 Sat (%) 97 08/08/16 18:24 O2 Delivery Mode Room Air Allergies/Adverse Reactions: Penicillins Allergy (Verified 07/29/16 13:23) Home Medications: Medication Instructions Recorded Cephalexin [Keflex (*)] 500 mg PO QID 7 Days 07/08/16 Hydrocodone/APAP 5/325 [Clyde 1 - 2 tab PO Q4 #11 tab 07/08/16 5/325 (RX)] Tamsulosin HCl [Flomax] 0.4 mg PO DAILY #4 cap 07/08/16 Ibuprofen 600 mg PO Q8 PRN #15 tablet 08/05/16 Medical Decision Making - Data Points Medications Given: Discontinued Medications Dexamethasone (Decadron Injection) 10 mg IVP EDNOW ONE Stop: 08/08/16 18:39 Last Admin: 08/08/16 18:53 Dose: 10 mg Diphenhydramine HCl (Benadryl Injection) 25 mg IVP EDNOW ONE Stop: 08/08/16 18:39 Last Admin: 08/08/16 18:53 Dose: 25 mg Sodium Chloride (Ns) 500 mls @ 0 mls/hr IV ONCE ONE PRN Reason: As Directed Stop: 08/08/16 18:38 Last Admin: 08/08/16 18:53 Dose: 500 mls Ketorolac Tromethamine (Toradol) 30 mg IVP EDNOW ONE Stop: 08/08/16 18:39 Last Admin: 08/08/16 18:53 Dose: 30 mg Metoclopramide HCl (Reglan Injection) 10 mg IVP EDNOW ONE Stop: 08/08/16 18:39 Last Admin: 08/08/16 18:53 Dose: 10 mg Departure - Departure Disposition: Home, Routine, Self-Care Clinical Impression: Headache Condition: Good Instructions: Migraine Headache (ED) Additional Instructions: Read and follow provided instructions. Follow-up with your primary care physician in 1-2 days for re-evaluation as needed. Take medication as prescribed for treatment of your migraine headache. Return to the emergency department for worsening headache, fever, vomiting or other serious concerns. Referrals: Patient,NotPresent [Unknown] - As per Instructions
[2016-08-08 19:17] VITALS: O2SAT 93
[2016-08-08 20:52] VITALS: BP 112/60; PULSE 64; RESP 14
== END 2016-08-08 20:52 | disposition home or self-care (01) ==
LOC: EDUNIT# → EDBD
DX: R51 Headache (principal)
CPT/HCPCS: 96374; 96375; 99284; J1200; J1885; J2765

== ENCOUNTER 2016-08-13 18:17 | Emergency (ER) | payer OTHER, MEDICAID ==
[2016-08-13] MEDS ORDERED: METOCLOPRAMIDE 10 MG/2 ML VIAL IVP ONE (18:23)
[2016-08-13] MEDS ORDERED: NS 1,000 ML IV ONE (18:23)
[2016-08-13] MEDS ORDERED: KETOROLAC 30 MG/1 ML SDV IVP ONE (18:23)
[2016-08-13 18:57] VITALS: RESP 16
--- NOTE | 2016-08-13 20:23 | EDPHY ---
H & P Stated Complaint: migraine MOYA x 3 hrs Time Seen by Provider: 08/13/16 18:20 HPI/ROS: Chief complaint: Migraine headache History of present illness: This is a 26-year-old male who presents to the emergency department for evaluation of a migraine headache. Patient reports a long history of migraine headaches. He reports the current one started about 3 hours ago. It is slowly worsening. He denies precipitating factors. He denies alleviating factors. He does state this is typical in nature for migraine headaches that he gets. There is nothing new or different today is compared to previous headaches. It was not thunderclap in nature. It is not the worst headache of his life. He denies history of trauma recently, denies fevers or cold symptoms. Review of systems: A 10 point review of systems was obtained and other than described above was negative - Personal History Current Tetanus/Diphtheria Vaccine: Unsure Current Tetanus Diphtheria and Acellular Pertussis (TDAP): Unsure Tetanus Vaccine Date: last 10 years - Medical/Surgical History Hx Asthma: No Hx Chronic Respiratory Disease: No Hx Diabetes: No Hx Cardiac Disease: No Hx Renal Disease: No Hx Cirrhosis: No Hx Alcoholism: No Hx HIV/AIDS: No Hx Splenectomy or Spleen Trauma: No Other PMH: CP, DEPRESSION, MIGRAINES, ANXIETY, PTSD, Cerebal Palsy, Low fundoplication, OCD - Social History Smoking Status: Never smoked - Physical Exam Exam: General Appearance: Alert, nontoxic, patient is wheelchair-bound. Eyes: Pupils equal and round no injection. Respiratory: Chest is nontender, lungs are clear to auscultation. Cardiac: regular rate and rhythm. Gastrointestinal: Abdomen is soft and nontender, no masses, bowel sounds normal. Musculoskeletal: Neck is supple and nontender. Patient does have contractures, extremities appear to be at baseline. Skin: No rashes or lesions Neurologic: Patient is alert and oriented. Strength and sensation is at baseline. No meningismus. Constitutional: Initial Vital Signs Temperature (C) 37.9 C 08/13/16 18:52 Heart Rate 86 08/13/16 18:52 Respiratory Rate 16 08/13/16 18:52 Blood Pressure 111/75 08/13/16 18:52 O2 Sat (%) 97 08/13/16 18:52 O2 Delivery Mode Room Air Allergies/Adverse Reactions: Penicillins Allergy (Verified 08/13/16 18:49) Home Medications: Medication Instructions Recorded Diphenhydramine HCl 08/13/16 Sumatriptan 08/13/16 Tylenol 08/13/16 Zofran 08/13/16 Medical Decision Making ED Course/Re-evaluation: Patient seen under the supervision of my secondary supervising physician Dr. Terry Corrales. Patient presents to the emergency department for a migraine headache. He has a history of headaches, this is typical in nature. There is nothing new or different today as compared to previous episodes. No red flag risk factors noted. He states he usually responds to the "migraine cocktail". He is given Toradol, Reglan, Benadryl. He recently had Decadron so I have not given him this this evening. He reports feeling much better. He is discharged. He is asked to follow up with a primary care doctor for recheck. Return precautions are given. Differential Diagnosis: Included but not limited to migraine headache, tension headache, cluster headache, unlikely intracranial bleed or infectious pathology such as meningitis - Data Points Medications Given: Discontinued Medications Diphenhydramine HCl (Benadryl Injection) 25 mg IVP EDNOW ONE Stop: 08/13/16 18:24 Last Admin: 08/13/16 18:46 Dose: 25 mg Sodium Chloride (Ns) 1,000 mls @ 0 mls/hr IV ONCE ONE PRN Reason: Wide Open Stop: 08/13/16 18:24 Last Admin: 08/13/16 18:46 Dose: 1,000 mls Ketorolac Tromethamine (Toradol) 30 mg IVP EDNOW ONE Stop: 08/13/16 18:24 Last Admin: 08/13/16 18:46 Dose: 30 mg Metoclopramide HCl (Reglan Injection) 10 mg IVP EDNOW ONE Stop: 08/13/16 18:24 Last Admin: 08/13/16 18:46 Dose: 10 mg Departure - Departure Disposition: Home, Routine, Self-Care Clinical Impression: Headache Qualifiers: Headache type: unspecified Headache chronicity pattern: acute headache Intractability: not intractable Qualified Code(s): R51 - Headache Condition: Good Instructions: Acute Headache (ED) Additional Instructions: Follow-up with your primary care doctor for recheck If symptoms worsen or new symptoms develop return to the emergency room for recheck Referrals: Patient,NotPresent [Unknown] - As per Instructions [facility],. [Clinic] - As per Instructions
[2016-08-13 21:19] VITALS: BP 115/74; PULSE 77; TEMP 99; O2SAT 96
== END 2016-08-13 20:30 | disposition home or self-care (01) ==
LOC: EDUNIT#
DX: R51 Headache (principal)
CPT/HCPCS: 96361; 96374; 96375; 99284; J1200; J1885; J2765

== ENCOUNTER 2016-11-23 20:01 | Emergency (ER) | payer OTHER, MEDICAID ==
[2016-11-23 20:09] VITALS: RESP 16; TEMP 97.9; O2SAT 97
--- NOTE | 2016-11-23 20:19 | EDPHY ---
H & P Stated Complaint: c/o migraine hicks/nausea, usu meds are in [place] where pt lives Time Seen by Provider: 11/23/16 20:19 - Personal History Tetanus Vaccine Date: last 10 years - Medical/Surgical History Hx Asthma: No Hx Chronic Respiratory Disease: No Hx Diabetes: No Hx Cardiac Disease: No Hx Renal Disease: No Hx Cirrhosis: No Hx Alcoholism: No Hx HIV/AIDS: No Hx Splenectomy or Spleen Trauma: No Other PMH: DEPRESSION, MIGRAINES, ANXIETY, PTSD, Cerebal Palsy, Low fundoplication, OCD - Social History Smoking Status: Never smoked Constitutional: Initial Vital Signs Temperature (C) 36.6 C 11/23/16 20:07 Heart Rate 75 11/23/16 20:07 Respiratory Rate 16 11/23/16 20:07 Blood Pressure 112/69 11/23/16 20:07 O2 Sat (%) 97 11/23/16 20:07 O2 Delivery Mode Room Air Allergies/Adverse Reactions: Penicillins Allergy (Verified 11/23/16 20:09) Home Medications: Medication Instructions Recorded Diphenhydramine HCl 08/13/16 Sumatriptan 08/13/16 Tylenol 08/13/16 Zofran 08/13/16 IBUPROFEN 11/23/16 Medical Decision Making ED Course/Re-evaluation: CHIEF COMPLAINT: Migraine HISTORY OF PRESENT ILLNESS: The patient is a 26 y/o male with a history of cerebral palsy complaining of a typical migraine onset today. He normally treats his migraines with home medications, but missed the bus home to [place] where all of his medications are located. He denies new symptoms, recent trauma , or recent illness. He states migraine cocktails usually resolve his symptoms. REVIEW OF SYSTEMS: A 10 point review of systems was performed and is negative with the exception of the elements mentioned in the history of present illness. PHYSICAL EXAM: HR, BP, O2 Sat, RR. Temp noted General Appearance: Alert, well hydrated, appropriate, and non-toxic appearing. Head: Atraumatic without scalp tenderness or obvious injury Eyes: Pupils equal, round, reactive to light and accommodation, EOMI, no trauma , no injection. Nose: Atraumatic, no rhinorrhea, clear. Throat: Mucus membranes moist. Neck: Supple, nontender, no lymphadenopathy. Respiratory: No retractions, no distress, no wheezes, and no accessory muscle use. Lungs are clear to auscultation bilaterally. Cardiovascular: Regular rate and rhythm, no murmurs, rubs, or gallops. Good capillary refill all extremities. Gastrointestinal: Abdomen is soft, nontender, non-distended, no masses, no rebound, no guarding, no peritoneal signs. Catheter in place. Musculoskeletal: Cast on right leg. Atraumatic. Neurological: Alert, appropriate, and interactive. Baseline changes secondary to cerebral palsy Skin: No rashes, good turgor, no nodules on palpation. Past medical history: Cerebral palsy, depression, anxiety, migraines Past surgical history: Low fundoplication Family history: noncontributory Social history: Lives in [place], wheelchair-bound DIFFERENTIAL DIAGNOSIS: The differential diagnosis for the patient's headache included but was not limited to subarachnoid hemorrhage, migraine headache, tension headache and infectious causes such as meningitis, pharyngitis and sinusitis. MEDICAL DECISION MAKING: This is a 26 y/o male with Cerebral Palsy who presents with his typical migraine symptoms. He is not requesting any additional work up, only symptom relief. 10mg IV Reglan, 30mg IV Toradol, and 10mg IV Decadron administered. Reassessed patient. His symptoms have improved significantly and he feels ready for discharge home. Return precautions and referral to neuro given. He is comfortable with this plan. - Data Points Medications Given: Discontinued Medications Dexamethasone (Decadron Injection) 10 mg IVP EDNOW ONE Stop: 11/23/16 20:23 Last Admin: 11/23/16 20:44 Dose: 10 mg Ketorolac Tromethamine (Toradol) 30 mg IVP EDNOW ONE Stop: 11/23/16 20:23 Last Admin: 11/23/16 20:40 Dose: 30 mg Metoclopramide HCl (Reglan Injection) 10 mg IVP EDNOW ONE Stop: 11/23/16 20:23 Last Admin: 11/23/16 20:41 Dose: 10 mg Departure - Departure Disposition: Home, Routine, Self-Care Clinical Impression: Migraine Qualifiers: Migraine type: other Status migrainosus presence: without status migrainosus Intractability: not intractable Qualified Code(s): G43.809 - Other migraine, not intractable, without status migrainosus Condition: Good Instructions: Migraine Headache (ED) Additional Instructions: Follow up with your neurologist for unimproved symptoms over the next few days. Return to the ED for worsening of condition. Referrals: Patient,NotPresent [Primary Care Provider] - As per Instructions Filemon Mckeon DO [Medical Doctor] - As per Instructions Report Scribed for: Terry Corrales Report Scribed by: Suzie Lubin Date of Report: 11/23/16 Time of Report: 20:23
[2016-11-23] MEDS ORDERED: DEXAMETHASONE 10 MG/ML VIAL IVP ONE (20:22)
[2016-11-23] MEDS ORDERED: METOCLOPRAMIDE 10 MG/2 ML VIAL IVP ONE (20:22)
[2016-11-23] MEDS ORDERED: KETOROLAC 30 MG/1 ML SDV IVP ONE (20:22)
[2016-11-23 21:21] VITALS: BP 105/67; PULSE 73
== END 2016-11-23 21:30 | disposition home or self-care (01) ==
LOC: EDUNIT#
DX: G43.809 Other migraine, not intractable, without status migrainosus (principal)
CPT/HCPCS: 96374; 96375; 99284; J1100; J1885; J2765

== ENCOUNTER 2016-11-26 16:38 | Emergency (ER) | payer OTHER, MEDICAID ==
--- NOTE | 2016-11-26 16:47 | CPEKG ---
Heart Rate: 96 RR Interval: 625 P-R Interval: 112 QRSD Interval: 72 QT Interval: 352 QTC Interval: 445 P Brandon: 15 QRS Brandon: 49 T Wave Brandon: 24 EKG Severity - NORMAL ECG - EKG Impression: SINUS RHYTHM Electronically Signed By: Elda Dorman 26-Nov-2016 22:59:05
[2016-11-26 17:03] VITALS: BP 101/56; RESP 18; TEMP 98.4
[2016-11-26] MEDS ORDERED: KETOROLAC 30 MG/1 ML SDV ONE (17:06)
[2016-11-26] MEDS ORDERED: ASPIRIN 325 MG TAB ONE (17:06)
--- NOTE | 2016-11-26 17:08 | EDPHY ---
H & P Time Seen by Provider: 11/26/16 16:48 HPI/ROS: CHIEF COMPLAINT: Chest pain HISTORY OF PRESENT ILLNESS: The patient is a 26-year-old male who presents emergency department with midline chest pain starting at 2:30pm. He states it started centrally and moves bilaterally. Constant. No pain in his back. No shortness of breath or cough. No pleuritic pain. No fevers or chills. Patient did recently break his left leg and has a cast in place. REVIEW OF SYSTEMS: My complete review of systems is negative except as mentioned in the HPI. Past Medical/Surgical History: Includes depression, migraines, anxiety, PTSD, cerebral palsy, OCD Past surgical history: Includes Noah fundoplication Family history: Noncontributory Social history: Patient is wheelchair-bound. Denies smoking. Smoking Status: Never smoked Physical Exam: Vitals noted GENERAL: No acute distress, alert. HEENT: Eyes normal to inspection, normal pharynx, no signs of dehydration. NECK: No thyromegaly, no lymphadenopathy, supple. RESPIRATORY: Clear to auscultation bilaterally, no rales, rhonchi or wheezing. CVS: Regular rate and rhythm, no rubs, murmurs, or gallops. ABDOMEN: Soft, nontender, nondistended, no organomegaly. BACK: Normal to inspection, no CVA tenderness. SKIN: Normal color, no rash, warm, dry. No pallor. EXTREMITIES: No pedal edema, no calf tenderness, no Homans sign or cords, no joint swelling. NEURO/PSYCH: Alert and oriented, appropriate, interactive. Baseline changes secondary to cerebral palsy. Constitutional: Initial Vital Signs Temperature (C) 36.9 C 11/26/16 16:57 Heart Rate 104 H 11/26/16 16:57 Respiratory Rate 18 11/26/16 16:57 Blood Pressure 101/56 L 11/26/16 16:57 O2 Sat (%) 97 11/26/16 16:57 O2 Delivery Mode Room Air Allergies/Adverse Reactions: Penicillins Allergy (Verified 11/23/16 20:09) Home Medications: Medication Instructions Recorded Diphenhydramine HCl 08/13/16 Sumatriptan 08/13/16 Tylenol 08/13/16 Zofran 08/13/16 IBUPROFEN 11/23/16 Medical Decision Making - Diagnostics Imaging Results: Imaging Impressions Chest X-Ray 11/26/16 17:09 Impression: Less than optimal inspiration. Possible heart disease. No pneumonia. ED Course/Re-evaluation: In the emergency department I discussed possible etiologies with the patient. I answered all his questions. IV was placed. Laboratory studies, EKG and chest x-ray were ordered. Patient was given aspirin 325 orally. He is given Toradol 30 mg IV. EKG shows normal sinus rhythm, normal rate, normal axis, normal intervals. There are no ST or T-wave abnormalities. EKG is normal as interpreted by me. Patient's CBC, chemistry and troponin were negative. D-dimer is normal. Chest x-ray: No acute disease noted. Poor inspiratory effort. I rechecked the patient while here. He stated his felt much better. He had no chest pain on repeat exam. I discussed all results. I gave the patient warnings prior to leaving. He will return with worsening symptoms. Differential Diagnosis: My differential includes but is not limited to ACS, acute OH, pulmonary embolus , DVT, pleurisy, pneumonia, bronchitis, pneumothorax, hemothorax - Data Points Laboratory Results: Laboratory Results 11/26/16 16:30 11/26/16 16:30 11/26/16 11/26/16 11/26/16 16:30 16:30 16:30 WBC 6.62 10^3/uL 10^3/uL (3.80-9.50) RBC 4.74 10^6/uL 10^6/uL (4.40-6.38) Hgb 10.4 g/dL L g/dL (13.7-17.5) Hct 34.7 % L % (40.0-51.0) MCV 73.2 fL L fL (81.5-99.8) MCH 21.9 pg L pg (27.9-34.1) MCHC 30.0 g/dL L g/dL (32.4-36.7) RDW 16.6 % H % (11.5-15.2) Plt Count 180 10^3/uL 10^3/uL (150-400) MPV 11.4 fL fL (8.7-11.7) Neut % (Auto) 60.6 % % (39.3-74.2) Lymph % (Auto) 31.3 % % (15.0-45.0) Casey % (Auto) 6.6 % % (4.5-13.0) Eos % (Auto) 0.9 % % (0.6-7.6) Baso % (Auto) 0.3 % % (0.3-1.7) Nucleat RBC Rel Count 0.0 % % (0.0-0.2) Absolute Neuts (auto) 4.01 10^3/uL 10^3/uL (1.70-6.50) Absolute Lymphs (auto) 2.07 10^3/uL 10^3/uL (1.00-3.00) Absolute Monos (auto) 0.44 10^3/uL 10^3/uL (0.30-0.80) Absolute Eos (auto) 0.06 10^3/uL 10^3/uL (0.03-0.40) Absolute Basos (auto) 0.02 10^3/uL 10^3/uL (0.02-0.10) Absolute Nucleated RBC 0.00 10^3/uL 10^3/uL (0-0.01) Immature Gran % 0.3 % % (0.0-1.1) Immature Gran # 0.02 10^3/uL 10^3/uL (0.00-0.10) D-Dimer 0.42 ug/mLFEU ug/mLFEU (0.00-0.50) Sodium 146 mEq/L H mEq/L (134-144) Potassium 4.2 mEq/L mEq/L (3.5-5.2) Chloride 110 mEq/L mEq/L (97-110) Carbon Dioxide 22 mEq/l mEq/l (22-31) Anion Gap 14 mEq/L mEq/L (8-16) BUN 23 mg/dL mg/dL (7-23) Creatinine 0.7 mg/dL mg/dL (0.7-1.3) Estimated GFR > 60 Glucose 97 mg/dL mg/dL (70-100) Calcium 10.1 mg/dL mg/dL (8.5-10.4) Total Bilirubin 0.7 mg/dL mg/dL (0.1-1.4) Conjugated Bilirubin 0.4 mg/dL mg/dL (0.0-0.5) Unconjugated Bilirubin 0.3 mg/dL mg/dL (0.0-1.1) AST 23 IU/L IU/L (17-59) ALT 42 IU/L IU/L (21-72) Alkaline Phosphatase 70 IU/L IU/L (38-126) Troponin I < 0.012 ng/mL ng/mL (0-0.034) Total Protein 7.7 g/dL g/dL (6.3-8.2) Albumin 4.3 g/dL g/dL (3.5-5.0) Lipase 96.0 IU/L IU/L (23-300) Medications Given: Discontinued Medications Aspirin (Aspirin) 324 mg PO EDNOW ONE Stop: 11/26/16 17:10 Last Admin: 11/26/16 17:16 Dose: 324 mg Ketorolac Tromethamine (Toradol) 30 mg IVP EDNOW ONE Stop: 11/26/16 17:11 Last Admin: 11/26/16 17:16 Dose: 30 mg Departure - Departure Disposition: Home, Routine, Self-Care Clinical Impression: Chest pain Qualifiers: Chest pain type: other chest pain Qualified Code(s): R07.89 - Other chest pain Condition: Fair Instructions: Chest Pain (ED) Additional Instructions: Return with increasing chest pain, shortness of breath, fever, chills or any other concerns. Referrals: Patient,NotPresent [Primary Care Provider] - As per Instructions Tameka Paz MD [Medical Doctor] - 5-7 days, call for appt.
[2016-11-26] MEDS ORDERED: ASPIRIN 81 MG CHEWABLE TAB PO ONE (17:09)
[2016-11-26] MEDS ORDERED: KETOROLAC 30 MG/1 ML SDV IVP ONE (17:10)
[2016-11-26 17:14] LABS: % IMMATURE GRANULYOCYTES 0.3 % (0.0-1.1); ABSOLUTE IMMATURE GRANULOCYTES 0.02 10^3/uL (0.00-0.10); ADD DIFF? NO; ADD MORPH? NO; ADD SCAN? NO; ATYPICAL LYMPHOCYTE FLAG 0 (0-99); FRAGMENT RBC FLAG 20 (0-99); HEMATOCRIT 34.7 % (40.0-51.0); HEMOGLOBIN 10.4 g/dL (13.7-17.5); LEFT SHIFT FLG 0 (0-99); LIPEMIA HEMOLYSIS FLAG 80 (0-99); MEAN CELL HEMOGLOBIN 21.9 pg (27.9-34.1); MEAN CELL VOLUME 73.2 fL (81.5-99.8); MEAN PLATELET VOLUME 11.4 fL (8.7-11.7); PLATELET CLUMPS FLAG 0 (0-99); PLATELET COUNT 180 10^3/uL (150-400); RED BLOOD CELL COUNT 4.74 10^6/uL (4.40-6.38); RED CELL DISTRIBUTION WIDTH 16.6 % (11.5-15.2)
[2016-11-26 17:22] LABS: ALANINE AMINOTRANSFERASE 42 IU/L (21-72); ALBUMIN 4.3 g/dL (3.5-5.0); ALKALINE PHOSPHATASE 70 IU/L (38-126); ANION GAP 14 mEq/L (8-16); ASPARTATE AMINOTRANSFERASE 23 IU/L (17-59); BILIRUBIN,TOTAL 0.7 mg/dL (0.1-1.4); BILIRUBIN-CONJUGATED 0.4 mg/dL (0.0-0.5); BILIRUBIN-UNCONJUGATED 0.3 mg/dL (0.0-1.1); CALCIUM 10.1 mg/dL (8.5-10.4); CARBON DIOXIDE 22 mEq/l (22-31); CHLORIDE 110 mEq/L (97-110); CREATININE 0.7 mg/dL (0.7-1.3); GLOMERULAR FILTRATION RATE > 60; GLUCOSE 97 mg/dL (70-100); POTASSIUM 4.2 mEq/L (3.5-5.2); SODIUM 146 mEq/L (134-144); TOTAL PROTEIN 7.7 g/dL (6.3-8.2)
[2016-11-26 17:33] LABS: TROPONIN I < 0.012 ng/mL (0-0.034)
[2016-11-26 18:18] VITALS: PULSE 100; O2SAT 93
== END 2016-11-26 18:35 | disposition home or self-care (01) ==
LOC: EDUNIT#
DX: R07.89 Other chest pain (principal)
CPT/HCPCS: 71020; 93005; 96374; 99284; J1885

== ENCOUNTER 2016-12-03 22:23 | Emergency (ER) | payer OTHER, MEDICAID ==
[2016-12-03] MEDS ORDERED: HYDROmorphONE/DILAUDID 1 MG/ML SYR IVP ONE (22:26)
[2016-12-03] MEDS ORDERED: ONDANSETRON 4 MG/2 ML VIAL IVP ONE (22:26)
[2016-12-03] MEDS ORDERED: NS 1,000 ML IV ONE (22:26)
--- NOTE | 2016-12-03 22:32 | EDPHY ---
H & P HPI/ROS: HPI CHIEF COMPLAINT: Migraine headache, nausea HISTORY OF PRESENT ILLNESS: This patient is a 26-year-old male, significant past medical history for cerebral palsy, wheelchair bound with upper and lower extremity contractures, depression, PTSD, migraine headaches and anxiety, indwelling Schultz catheter, presents emergency room by EMS after he was leaving work this evening in [place] going back to [place] on a bus when he states he got nauseous and developed a migraine headache. He was in his wheelchair on the sidewalk when he called 911. He tells me he developed a migraine. He states global throbbing. Not the worst headache of his life. Not sudden onset. Feels exactly like his previous migraine headaches. Had nausea associated but no vomiting. Denies fever neck pain. Denies chest pain or shortness of breath. Past Medical History: Depression, anxiety, PTSD, OCD, cerebral palsy Past Surgical History: No recent surgery Social History: Lives in [place], denies drugs alcohol tobacco products Family History: Noncontributory ROS REVIEW OF SYSTEMS: A comprehensive 10 point review of systems is otherwise negative aside from elements mentioned in the history of present illness. Exam Constitutional appears well nontoxic, triage nursing summary reviewed, vital signs reviewed, awake/alert. Eyes normal conjunctivae and sclera, EOMI, PERRLA. HENT normal inspection, atraumatic, moist mucus membranes, no epistaxis, neck supple/ no meningismus, no raccoon eyes. Respiratory clear to auscultation bilaterally, normal breath sounds, no respiratory distress, no wheezing. Cardiovascular rate normal, regular rhythm, no murmur, no edema, distal pulses normal. Gastrointestinal soft, non-tender, no rebound, no guarding, normal bowel sounds, no distension, no pulsatile mass. Genitourinary no CVA tenderness. Musculoskeletal no midline vertebral tenderness, full range of motion, no calf swelling, no tenderness of extremities, no meningismus, good pulses, neurovascularly intact. Skin pink, warm, & dry, no rash, skin atraumatic. Neurologic normal neurological exam for this patient. awake, alert and oriented x 3, AAOx3, bilateral lower extremity atrophy, and contractures, bilateral upper extremity atrophy and contractures,, motor intact, sensory intact, CN II-XII intact, normal cerebellar, normal vision, normal speech. Psychiatric normal mood/affect. Heme/Lymph/Immune no lymphadenopathy. Differential Diagnosis: Includes but is not limited to in a particular order, migraine headache, tension headache, dehydration, electrolyte disturbance, doubt intracranial bleed, as this patient is typical of his migraines, and normal neurological exam. Medical Decision Making: Plan for this patient IV establishment, basic blood work, IV Dilaudid for acute pain control, IV Zofran for nausea IV fluid bolus. Re-evaluate. Re-evaluation: 2259: Patient is feeling much better. States his nausea is well controlled pain well controlled. Requesting discharge. He would like to get back to [place]. Neurological exam is unremarkable and normal for his exam. No indication to scan his head. Doubt intracranial bleed or stroke. Symptoms are consistent with his previous migraines. Doubt meningitis as he appears well nontoxic. Normal vital signs afebrile blood work reviewed. Recommend following up with his primary care doctor return emergency room if there is worsening symptoms questions or concerns he understands. Source: Patient, EMS - Personal History Tetanus Vaccine Date: last 10 years - Medical/Surgical History Hx Asthma: No Hx Chronic Respiratory Disease: No Hx Diabetes: No Hx Cardiac Disease: No Hx Renal Disease: No Hx Cirrhosis: No Hx Alcoholism: No Hx HIV/AIDS: No Hx Splenectomy or Spleen Trauma: No Other PMH: DEPRESSION, MIGRAINES, ANXIETY, PTSD, Cerebal Palsy, Low fundoplication, OCD - Social History Smoking Status: Never smoked Constitutional: Initial Vital Signs Temperature (C) 36.8 C 12/03/16 22:31 Heart Rate 88 12/03/16 22:31 Respiratory Rate 16 12/03/16 22:31 Blood Pressure 110/81 H 12/03/16 22:31 O2 Sat (%) 97 12/03/16 22:31 O2 Delivery Mode Room Air Allergies/Adverse Reactions: Penicillins Allergy (Verified 12/03/16 22:30) Home Medications: Medication Instructions Recorded Diphenhydramine HCl 08/13/16 Sumatriptan 08/13/16 Tylenol 08/13/16 Zofran 08/13/16 IBUPROFEN 11/23/16 Medical Decision Making - Data Points Laboratory Results: Laboratory Results 12/03/16 22:27 12/03/16 22:27 12/03/16 12/03/16 22:27 22:27 WBC 9.26 10^3/uL 10^3/uL (3.80-9.50) RBC 5.09 10^6/uL 10^6/uL (4.40-6.38) Hgb 11.1 g/dL L g/dL (13.7-17.5) Hct 36.4 % L % (40.0-51.0) MCV 71.5 fL L fL (81.5-99.8) MCH 21.8 pg L pg (27.9-34.1) MCHC 30.5 g/dL L g/dL (32.4-36.7) RDW 16.0 % H % (11.5-15.2) Plt Count 224 10^3/uL 10^3/uL (150-400) MPV 12.0 fL H fL (8.7-11.7) Neut % (Auto) 65.1 % % (39.3-74.2) Lymph % (Auto) 25.5 % % (15.0-45.0) Weber % (Auto) 7.7 % % (4.5-13.0) Eos % (Auto) 1.1 % % (0.6-7.6) Baso % (Auto) 0.3 % % (0.3-1.7) Nucleat RBC Rel Count 0.0 % % (0.0-0.2) Absolute Neuts (auto) 6.03 10^3/uL 10^3/uL (1.70-6.50) Absolute Lymphs (auto) 2.36 10^3/uL 10^3/uL (1.00-3.00) Absolute Monos (auto) 0.71 10^3/uL 10^3/uL (0.30-0.80) Absolute Eos (auto) 0.10 10^3/uL 10^3/uL (0.03-0.40) Absolute Basos (auto) 0.03 10^3/uL 10^3/uL (0.02-0.10) Absolute Nucleated RBC 0.00 10^3/uL 10^3/uL (0-0.01) Immature Gran % 0.3 % % (0.0-1.1) Immature Gran # 0.03 10^3/uL 10^3/uL (0.00-0.10) Sodium 141 mEq/L mEq/L (134-144) Potassium 4.3 mEq/L mEq/L (3.5-5.2) Chloride 105 mEq/L mEq/L (97-110) Carbon Dioxide 21 mEq/l L mEq/l (22-31) Anion Gap 15 mEq/L mEq/L (8-16) BUN 21 mg/dL mg/dL (7-23) Creatinine 0.7 mg/dL mg/dL (0.7-1.3) Estimated GFR > 60 Glucose 96 mg/dL mg/dL (70-100) Calcium 10.6 mg/dL H mg/dL (8.5-10.4) Medications Given: Discontinued Medications Hydromorphone HCl (Dilaudid) 0.5 mg IVP EDNOW ONE Stop: 12/03/16 22:27 Last Admin: 12/03/16 22:39 Dose: 0.5 mg Sodium Chloride (Ns) 1,000 mls @ 0 mls/hr IV ONCE ONE; Wide Open PRN Reason: Protocol Stop: 12/03/16 22:27 Last Admin: 12/03/16 22:39 Dose: 1,000 mls Ondansetron HCl (Zofran) 4 mg IVP EDNOW ONE Stop: 12/03/16 22:27 Last Admin: 12/03/16 22:39 Dose: 4 mg Departure - Departure Disposition: Home, Routine, Self-Care Clinical Impression: Headache Qualifiers: Headache type: unspecified Headache chronicity pattern: acute headache Intractability: not intractable Qualified Code(s): R51 - Headache Condition: Good Instructions: Acute Headache (ED) Additional Instructions: 1. Please follow up with your primary care doctor. 2. Return emergency room if develops worsening symptoms questions or concerns. Referrals: NONE *PRIMARY CARE P,. [Primary Care Provider] - As per Instructions
[2016-12-03 22:34] LABS: % IMMATURE GRANULYOCYTES 0.3 % (0.0-1.1); ABSOLUTE IMMATURE GRANULOCYTES 0.03 10^3/uL (0.00-0.10); ADD DIFF? NO; ADD MORPH? NO; ADD SCAN? NO; ATYPICAL LYMPHOCYTE FLAG 0 (0-99); FRAGMENT RBC FLAG 20 (0-99); HEMATOCRIT 36.4 % (40.0-51.0); HEMOGLOBIN 11.1 g/dL (13.7-17.5); LEFT SHIFT FLG 0 (0-99); LIPEMIA HEMOLYSIS FLAG 80 (0-99); MEAN CELL HEMOGLOBIN 21.8 pg (27.9-34.1); MEAN CELL HEMOGLOBIN CONCENTR. 30.5 g/dL (32.4-36.7); MEAN CELL VOLUME 71.5 fL (81.5-99.8); PLATELET CLUMPS FLAG 0 (0-99); PLATELET COUNT 224 10^3/uL (150-400); RED BLOOD CELL COUNT 5.09 10^6/uL (4.40-6.38)
[2016-12-03 22:35] VITALS: RESP 16
[2016-12-03 22:50] LABS: ANION GAP 15 mEq/L (8-16); CALCIUM 10.6 mg/dL (8.5-10.4); CARBON DIOXIDE 21 mEq/l (22-31); CHLORIDE 105 mEq/L (97-110); CREATININE 0.7 mg/dL (0.7-1.3); GLOMERULAR FILTRATION RATE > 60; GLUCOSE 96 mg/dL (70-100); POTASSIUM 4.3 mEq/L (3.5-5.2); SODIUM 141 mEq/L (134-144)
[2016-12-04 00:08] VITALS: BP 104/64; PULSE 66; TEMP 97.9; O2SAT 96
== END 2016-12-04 00:08 | disposition home or self-care (01) ==
LOC: EDUNIT#
DX: R51 Headache (principal); E86.9 Volume depletion, unspecified
CPT/HCPCS: 96361; 96374; 96375; 99284; J1170; J2405

== ENCOUNTER 2018-08-18 15:06 | Emergency (ER) | payer OTHER, MEDICAID ==
[2018-08-18] MEDS ORDERED: ONDANSETRON 4 MG/2 ML VIAL IVP ONE (15:17)
[2018-08-18] MEDS ORDERED: HYDROmorphONE/DILAUDID 2 MG/ML INJ IVP ONE (15:17)
[2018-08-18] MEDS ORDERED: NS 1,000 ML IV ONE (15:17)
[2018-08-18 15:34] LABS: PLATELET COUNT 181 10^3/uL (150-400)
--- NOTE | 2018-08-18 15:38 | EDPHY ---
H & P Time Seen by Provider: 08/18/18 15:08 HPI/ROS: HPI Right lower abdominal pain. 28-year-old male by ambulance. He is very familiar to our emergency department. He is a C5 quadriplegic. He states he had onset of right lower quadrant abdominal pain starting 15 min prior to arrival while he was in an [employer] store. He reports that his last meal was at 2:00 p.m.. He reports that his appendix is still in place. He reports he had a bowel movement yesterday. He describes this as normal. No diarrhea. No bloody or melenic stool. He has not had any vomiting. He describes the pain as sharp and cramping in nature. The patient has a narcotic caution from previous visits to our emergency department. ROS: Constitutional: No fever, no chills. No weakness. Eyes: No discharge. No changes in vision. ENT: No sore throat. No nasal congestion or rhinorrhea. Respiratory: No cough. No shortness of breath. Cardiac: No chest pain, no palpitations. Gastrointestinal: As above. Genitourinary: No hematuria. No dysuria or increased frequency with urination. Musculoskeletal: No back pain. No neck pain. No myalgias or arthralgias. Skin: No rashes. Neurological: No headache. No focal weakness or altered sensation. Past medical history: Depression, migraine headaches, PTSD, anxiety, cerebral palsy, OCD, as above. Social history: He denies smoking. He states he is from [place]. Denies alcohol. He is wheelchair-bound. He has a motorized wheelchair. Physical Exam: General Appearance: Alert, mildly anxious but not in distress. He appears comfortable when you talk to him and engaged in conversation. This patient is responding to questions appropriately and in full sentences. This patient appears well-hydrated and well-nourished. Eyes: Pupils equal and round no pallor or injection. No lid edema, erythema or injection. Respiratory: There are no retractions, lungs are clear to auscultation anteriorly with good air movement bilaterally. Cardiovascular: Regular rate and rhythm. No murmur appreciate. Gastrointestinal: Abdomen is moderately distended, I do not know if this is his baseline habitus, he does have vague right lower quadrant tenderness on palpation, no masses, bowel sounds are present. No focal tenderness at McBurney 's point. No Pierson sign. Suprapubic catheter in place. No evidence of infection at the insertion site. Neurological: Baseline.. Skin: Warm and dry, no rashes. Musculoskeletal: Neck is supple and nontender. Extremities are symmetrical. All joints range without pain or impingement. Psychiatric: No agitation. No depression. Database: EKG: Imaging: CT abdomen and pelvis with IV contrast: The appendix is well visualized and is normal. There is no evidence of obstruction. Constipation noted. No other significant pathology. Results were discussed with staff radiologist Dr. Nick White. Procedures: Emergency department course: Triage vital signs reviewed and are normal. IV was placed. He will initially be given 0.5 mg of IV hydromorphone for pain and 4 mg of IV Zofran. He will be started on IV normal saline and given 500 cc to 1 L over the next 1-[address] imaging to be obtained pending a normal creatinine. Patient endorses workup. 6:10 p.m. the patient was re-evaluated, results of his emergency department workup and CT scan discussed with him. At this time he is comfortable. Repeat abdominal exam is soft, and nontender. Urine shows positive leukocyte esterase and some white cells. Infection versus chronic inflammation uncertain at this time. Culture pending. I will start the patient on Keflex in the emergency department. He has had this medication in the past and has not had a reaction to it. He was given 500 mg. He tells me that he can fill a prescription without issue. He will be sent home with a take-home pack and a prescription for this medication. I have instructed him to follow up with his primary care physician in 2-3 days for re-evaluation. He told me he can do this. Return to emergency department precautions were reviewed with him. All of his questions were answered. He was discharged from the emergency department in good condition. Differential Diagnosis: The differential diagnosis on this patient includes but is not limited to constipation, appendicitis, ureterolithiasis. This represents a partial list of diagnoses considered. These considerations are based on history, physical exam, past history, reassessment and diagnostic testing. Smoking Status: Never smoked Constitutional: Initial Vital Signs Temperature (C) 36.5 C 08/18/18 15:09 Heart Rate 72 08/18/18 15:09 Respiratory Rate 16 08/18/18 15:09 Blood Pressure 113/78 08/18/18 15:09 O2 Sat (%) 97 08/18/18 15:09 O2 Delivery Mode Room Air Allergies/Adverse Reactions: acetaminophen Allergy (Verified 08/18/18 15:08) Penicillins Allergy (Verified 08/18/18 15:08) Home Medications: Medication Instructions Recorded Zofran 08/13/16 ALPRAZolam [Alprazolam] 0.5 mg PO BID 08/18/18 Cephalexin [Keflex (*)] 500 mg PO Q6 6 Days cap 08/18/18 FLUoxetine HCL [Fluoxetine HCl] 80 mg PO DAILY 08/18/18 Ibuprofen [Motrin (*)] 600 mg PO TID PRN 08/18/18 Prazosin HCl [Prazosin HCl] 2 mg PO DAILY 08/18/18 Promethazine HCl 08/18/18 SUMAtriptan [Imitrex 50 MG (*)] 50 mg PO DAILY PRN 08/18/18 Zolpidem Tartrate [Zolpidem 5 mg PO HS PRN 08/18/18 Tartrate] Medical Decision Making - Data Points Laboratory Results: Laboratory Results 08/18/18 15:10 08/18/18 15:10 Medications Given: Discontinued Medications Cephalexin (Keflex 500 Mg Prepack#4) 1 btl TAKEHOME EDNOW ONE PRN Reason: Protocol Stop: 08/18/18 18:17 Last Admin: 08/18/18 18:29 Dose: 1 btl Hydromorphone HCl (Dilaudid) 0.5 mg IVP EDNOW ONE Stop: 08/18/18 15:18 Last Admin: 08/18/18 15:35 Dose: 0.5 mg Hydromorphone HCl (Dilaudid) 0.5 mg IVP Q4HRS PRN PRN Reason: Pain, Severe Unable to Take PO Stop: 08/28/18 16:41 Last Admin: 08/18/18 17:17 Dose: 0.5 mg Sodium Chloride (Ns) 1,000 mls @ 0 mls/hr IV EDNOW ONE; Wide Open PRN Reason: Protocol Stop: 08/18/18 15:18 Last Admin: 08/18/18 15:23 Dose: 1,000 mls Ondansetron HCl (Zofran) 4 mg IVP EDNOW ONE Stop: 08/18/18 15:18 Last Admin: 08/18/18 15:35 Dose: 4 mg Departure - Departure Disposition: Home, Routine, Self-Care Clinical Impression: Lower abdominal pain, Constipation, Pyuria Condition: Good Instructions: Constipation (ED), Urinary Tract Infection in Men (ED), High Fiber Diet (ED) Additional Instructions: Read and follow provided instructions. Follow-up with your primary care physician in 2-3 days for re-evaluation as discussed. Take cephalexin antibiotic as prescribed. I have given you a take-home pack which is 1 day's worth of this medication. You will get a prescription for another 6 days. Return to the emergency department for worsening abdominal pain, fever, vomiting or other serious concerns. Referrals: MAICOL CACERES [Other] - As per Instructions Prescriptions: Cephalexin [Keflex (*)] 500 mg PO Q6 6 Days cap
[2018-08-18] MEDS ORDERED: IOPAMIDOL (ISOVUE-300) 100 ML BTL ONE (15:56)
[2018-08-18] MEDS ORDERED: HYDROmorphONE/DILAUDID 1 MG/ML INJ IVP PRN (16:42)
[2018-08-18] MEDS ORDERED: CEPHALEXIN 500MG PREPACK#4 BTL TAKEHOME ONE (18:16)
[2018-08-18 18:17] VITALS: BP 110/74
--- NOTE | 2018-08-18 18:31 | ASMTCMCOM ---
CM Note CM Note Notes: Spoke w/pt re: pt returning home to [place] via bus. Pt states he has his RTD bus pass with him and he feels comfortable taking the bus home. Pt states he will follow up with his PCP Igor García in [place]. Pt has a narcotic caution due to his past frequent ED visits (even though pt has not been to [facility] since 2017) and because he often presents to the ED with dilated pupils. Pt does report having chronic pain medication and has [id number] staff administer his medications but there is concern that the pt is getting other pain medications elsewhere. See past ED RN and CM Notes 10/30/15, 04/25/16 for additional background information. CM available for further assistance if needed. Date Signed: 08/18/2018 06:30 PM Electronically Signed By:Dianna Delaney RN
== END 2018-08-18 18:40 | disposition home or self-care (01) ==
DX: N39.0 Urinary tract infection, site not specified (principal); K59.00 Constipation, unspecified; E86.9 Volume depletion, unspecified; G80.9 Cerebral palsy, unspecified
CPT/HCPCS: 74177; 96361; 96374; 96375; 96376; 99285; J1170; J2405; Q9967

== ENCOUNTER 2018-09-13 17:42 | Emergency (ER) | payer OTHER, MEDICAID ==
[2018-09-13 17:48] VITALS: BP 118/82
[2018-09-13] MEDS ORDERED: IBUPROFEN 600 MG TAB PO ONE (18:21)
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
== END 2018-09-13 18:33 | disposition home or self-care (01) ==
DX: R51 Headache (principal); G80.8 Other cerebral palsy; F32.9 Major depressive disorder, single episode, unspecified; F41.9 Anxiety disorder, unspecified; Z99.3 Dependence on wheelchair; W22.8XXA Striking against or struck by other objects, initial encounter; Y92.811 Bus as the place of occurrence of the external cause

== ENCOUNTER 2018-09-21 18:23 | Emergency (ER) | payer OTHER, MEDICAID ==
--- NOTE | 2018-09-21 18:16 | EDPHY ---
H & P Time Seen by Provider: 09/21/18 19:47 Constitutional: Initial Vital Signs Temperature (C) 37.0 C 09/21/18 18:45 Heart Rate 86 09/21/18 18:45 Respiratory Rate 16 09/21/18 18:45 Blood Pressure 111/75 09/21/18 18:45 O2 Sat (%) 93 09/21/18 18:45 O2 Delivery Mode Room Air Allergies/Adverse Reactions: acetaminophen Allergy (Verified 09/13/18 17:43) Penicillins Allergy (Verified 09/13/18 17:43) Home Medications: Medication Instructions Recorded Zofran 08/13/16 ALPRAZolam [Alprazolam] 0.5 mg PO BID 08/18/18 Cephalexin [Keflex (*)] 500 mg PO Q6 6 Days cap 08/18/18 FLUoxetine HCL [Fluoxetine HCl] 80 mg PO DAILY 08/18/18 Ibuprofen [Motrin (*)] 600 mg PO TID PRN 08/18/18 Prazosin HCl [Prazosin HCl] 2 mg PO DAILY 08/18/18 Promethazine HCl 08/18/18 SUMAtriptan [Imitrex 50 MG (*)] 50 mg PO DAILY PRN 08/18/18 Zolpidem Tartrate [Zolpidem 5 mg PO HS PRN 08/18/18 Tartrate] Cephalexin [Keflex (RX)] 500 mg PO TID #30 cap 09/21/18 Medical Decision Making - Diagnostics Imaging Results: Imaging Impressions Abdomen CT 09/21/18 18:35 Impression: 1. Query constipation. 2. No acute intra-abdominal process is identified in this technically limited examination. 3. See above report for additional findings. Results called and discussed with Terry Corrales MD on 09/21/2018 at 19:51. Imaging: Discussed imaging studies w/ will call clerk Radiologist, I viewed and interpreted images myself ED Course/Re-evaluation: CHIEF COMPLAINT: Abdominal pain HISTORY OF PRESENT ILLNESS: Paraplegic who is complaining of abdominal pain. He has a suprapubic catheter. It is chronically colonized. Sometimes he does get treated for urinary tract infections regardless. Patient is unsure if he has another urinary tract infection. Patient also has loose stool currently. He has been cleaned up. REVIEW OF SYSTEMS: A comprehensive 10 system review of systems is otherwise negative aside from elements mentioned in the history of present illness and medical decision making. PHYSICAL EXAM: HR, BP, O2 Sat, RR. Temp noted General Appearance: Alert, well hydrated, appropriate, and non-toxic appearing. Head: Atraumatic without scalp tenderness or obvious injury Eyes: Pupils equal, round, reactive to light and accommodation, EOMI, no trauma , no injection. Ears: Clear bilaterally, no perforation, normal landmarks Nose: Atraumatic, no rhinorrhea, clear. Throat: There is no erythema or exudates, no lesions, normal tonsils, mucus membranes moist. Neck: Supple, 2+ carotid upstroke, nontender, no lymphadenopathy. Respiratory: No retractions, no distress, no wheezes, and no accessory muscle use. Lungs are clear to auscultation bilaterally. Cardiovascular: Regular rate and rhythm, no murmurs, rubs, or gallops. Bilateral carotid, radial, dorsalis pedis, and posterior tibial pulses intact. Good capillary refill all extremities. Gastrointestinal: Abdomen is soft, nontender, non-distended, no masses, no rebound, no guarding, no peritoneal signs. Musculoskeletal: Normal active ROM of all extremities, atraumatic. Neurological: Alert, appropriate, and interactive. The patient has normal DTRs and non-focal cranial nerves, motor, sensory, and cerebellar exam. Skin: No rashes, good turgor, no nodules on palpation. Past medical history: Paraplegic, urinary tract infections Past surgical history: Suprapubic tube Family history: Noncontributory Social history: Single, disabled, does not abuse tobacco drugs or alcohol, not employed DIAGNOSTICS/PROCEDURES/CRITICAL CARE TIME: Abdominopelvic CT: No acute process; significant sigmoid constipation. DIFFERENTIAL DIAGNOSIS: The differential diagnosis for the patient's abdominal pain included but was not limited to appendicitis, cholecystitis, hernias, testicular torsion, gastritis, and urinary tract infection. MEDICAL DECISION MAKING: This patient is in no distress. He is currently being cleaned up from a large loose bowel movement. Additionally, he believes he may have a urinary tract infection however he has a suprapubic tube which is chronically colonized and generally not worth treating. Laboratory studies are pending. Abdominal and pelvic CT is pending since this patient has poor sensation I cannot rely on my examination without imaging. 194: I spoke with Dr. Steiner, radiologist, regarding patient's abdominopelvic CT. Ther is no acute process; significant sigmoid constipation. Patient's urine also reveals chronic colonization. He could also have pseudomonas as he had it in the past. 1947: Reassessed patient and discussed imaging and laboratory findings. I discussed plan for Keflex, his first dose was given prior to discharge. Return precautions provided; patient is comfortable with this plan. - Data Points Laboratory Results: Laboratory Results 09/21/18 18:48 09/21/18 18:48 09/21/18 09/21/18 09/21/18 19:40 18:51 18:48 WBC RBC Hgb POC Hgb 15.3 gm/dL gm/dL (13.7-17.5) Hct POC Hct 45 % % (40-51) MCV MCH MCHC RDW Plt Count MPV Neut % (Auto) Lymph % (Auto) [place] % (Auto) Eos % (Auto) Baso % (Auto) Nucleat RBC Rel Count Absolute Neuts (auto) Absolute Lymphs (auto) Absolute Monos (auto) Absolute Eos (auto) Absolute Basos (auto) Absolute Nucleated RBC Immature Gran % Immature Gran # POC Sodium 140 mEq/L mEq/L (135-145) Sodium 138 mEq/L mEq/L (135-145) POC Potassium 3.9 mEq/L mEq/L (3.3-5.0) Potassium 4.4 mEq/L mEq/L (3.5-5.2) POC Chloride 104 mEq/L mEq/L (97-110) Chloride 104 mEq/L mEq/L (97-110) Carbon Dioxide 21 mEq/l L mEq/l (22-31) POC Total CO2 22 mEq/L mEq/L (22-31) Anion Gap 13 mEq/L mEq/L (6-14) POC BUN 13 mg/dL mg/dL (7-23) BUN 14 mg/dL mg/dL (7-23) Creatinine 0.5 mg/dL L mg/dL (0.7-1.3) POC Creatinine 0.5 mg/dL L mg/dL (0.7-1.3) Estimated GFR > 60 Glucose 94 mg/dL mg/dL (70-100) POC Glucose 97 mg/dL mg/dL (70-100) Calcium 10.2 mg/dL mg/dL (8.5-10.4) Total Bilirubin 0.6 mg/dL mg/dL (0.1-1.4) Conjugated Bilirubin 0.1 mg/dL mg/dL (0.0-0.5) Unconjugated Bilirubin 0.5 mg/dL mg/dL (0.0-1.1) AST 24 IU/L IU/L (17-59) ALT 29 IU/L IU/L (21-72) Alkaline Phosphatase 74 IU/L IU/L (38-126) Total Protein 8.2 g/dL g/dL (6.3-8.2) Albumin 4.8 g/dL g/dL (3.5-5.0) Lipase 223 IU/L IU/L (23-300) Urine Color YELLOW Urine Appearance HAZY Urine pH 5.0 (5.0-7.5) Ur Specific Metaline 1.031 H (1.002-1.030) Urine Protein NEGATIVE (NEGATIVE) Urine Ketones NEGATIVE (NEGATIVE) Urine Blood NEGATIVE (NEGATIVE) Urine Nitrate POSITIVE H (NEGATIVE) Urine Bilirubin NEGATIVE (NEGATIVE) Urine Urobilinogen NEGATIVE EU EU (0.2-1.0) Ur Leukocyte Esterase 3+ H (NEGATIVE) Urine RBC 1-3 /hpf /hpf (0-3) Urine WBC 50-182 /hpf H /hpf (0-3) Ur Epithelial Cells TRACE /lpf /lpf (NONE-1+) Urine Bacteria 1+ /hpf H /hpf (NONE SEEN) Urine Mucus TRACE /lpf /lpf (NONE-1+) Urine Yeast PRESENT /hpf /hpf (NONE SEEN) Urine Glucose NEGATIVE (NEGATIVE) 09/21/18 18:48 WBC 6.99 10^3/uL 10^3/uL (3.80-9.50) RBC 5.62 10^6/uL 10^6/uL (4.40-6.38) Hgb 14.3 g/dL g/dL (13.7-17.5) POC Hgb Hct 44.0 % % (40.0-51.0) POC Hct MCV 78.3 fL L fL (81.5-99.8) MCH 25.4 pg L pg (27.9-34.1) MCHC 32.5 g/dL g/dL (32.4-36.7) RDW 14.4 % % (11.5-15.2) Plt Count 179 10^3/uL 10^3/uL (150-400) MPV 12.0 fL H fL (8.7-11.7) Neut % (Auto) 56.7 % % (39.3-74.2) Lymph % (Auto) 35.3 % % (15.0-45.0) [place] % (Auto) 5.9 % % (4.5-13.0) Eos % (Auto) 1.6 % % (0.6-7.6) Baso % (Auto) 0.4 % % (0.3-1.7) Nucleat RBC Rel Count 0.0 % % (0.0-0.2) Absolute Neuts (auto) 3.96 10^3/uL 10^3/uL (1.70-6.50) Absolute Lymphs (auto) 2.47 10^3/uL 10^3/uL (1.00-3.00) Absolute Monos (auto) 0.41 10^3/uL 10^3/uL (0.30-0.80) Absolute Eos (auto) 0.11 10^3/uL 10^3/uL (0.03-0.40) Absolute Basos (auto) 0.03 10^3/uL 10^3/uL (0.02-0.10) Absolute Nucleated RBC 0.00 10^3/uL 10^3/uL (0-0.01) Immature Gran % 0.1 % % (0.0-1.1) Immature Gran # 0.01 10^3/uL 10^3/uL (0.00-0.10) POC Sodium Sodium POC Potassium Potassium POC Chloride Chloride Carbon Dioxide POC Total CO2 Anion Gap POC BUN BUN Creatinine POC Creatinine Estimated GFR Glucose POC Glucose Calcium Total Bilirubin Conjugated Bilirubin Unconjugated Bilirubin AST ALT Alkaline Phosphatase Total Protein Albumin Lipase Urine Color Urine Appearance Urine pH Ur Specific Metaline Urine Protein Urine Ketones Urine Blood Urine Nitrate Urine Bilirubin Urine Urobilinogen Ur Leukocyte Esterase Urine RBC Urine WBC Ur Epithelial Cells Urine Bacteria Urine Mucus Urine Yeast Urine Glucose Medications Given: Discontinued Medications Sodium Chloride (Ns) 1,000 mls @ 0 mls/hr IV EDNOW ONE; Wide Open PRN Reason: Protocol Stop: 09/21/18 18:35 Last Admin: 09/21/18 18:48 Dose: 1,000 mls Point of Care Test Results: Chemistry 09/21/18 18:51 POC Sodium 140 mEq/L mEq/L (135-145) POC Potassium 3.9 mEq/L mEq/L (3.3-5.0) POC Chloride 104 mEq/L mEq/L (97-110) POC Total CO2 22 mEq/L mEq/L (22-31) POC BUN 13 mg/dL mg/dL (7-23) POC Creatinine 0.5 mg/dL L mg/dL (0.7-1.3) POC Glucose 97 mg/dL mg/dL (70-100) ISTAT H&H 09/21/18 18:51 POC Hgb 15.3 gm/dL gm/dL (13.7-17.5) POC Hct 45 % % (40-51) Departure - Departure Disposition: Home, Routine, Self-Care Clinical Impression: Constipation Qualifiers: Constipation type: other constipation type Qualified Code(s): K59.09 - Other constipation UTI (urinary tract infection) Qualifiers: Urinary tract infection type: site unspecified Hematuria presence: without hematuria Qualified Code(s): N39.0 - Urinary tract infection, site not specified Condition: Good Instructions: Constipation (ED), Urinary Tract Infection in Men (ED) Additional Instructions: 1. Take Keflex as prescribed. 2. Follow-up with your primary doctor within 72 hours. 3. Return to the Emergency Department for fever, worsening pain, flank pain or failure to improve within 72 hours. Referrals: [facility],. [Clinic] - As per Instructions Prescriptions: Cephalexin [Keflex (RX)] 500 mg PO TID #30 cap
[2018-09-21] MEDS ORDERED: NS 1,000 ML IV ONE (18:34)
[2018-09-21 18:53] LABS: PLATELET COUNT 179 10^3/uL (150-400)
[2018-09-21] MEDS ORDERED: IOPAMIDOL (ISOVUE-300) 100 ML BTL ONE (19:05)
[2018-09-21] MEDS ORDERED: CEPHALEXIN 500 MG CAP PO ONE (20:02)
[2018-09-21 21:57] VITALS: BP 107/71
== END 2018-09-21 21:40 | disposition home or self-care (01) ==
LOC: EDUNIT#
DX: K59.09 Other constipation (principal); N39.0 Urinary tract infection, site not specified; E86.9 Volume depletion, unspecified; G82.20 Paraplegia, unspecified; Z96.0 Presence of urogenital implants
CPT/HCPCS: 74177; 96360; 99285; Q9967; 82435-PO; 82565-PO; 82947-PO; 84132-PO; 84295-PO; 84520-PO; 85014-ER

== ENCOUNTER 2018-10-03 02:12 | Emergency (ER) | payer OTHER, MEDICAID ==
[2018-10-03 05:20] VITALS: BP 101/64
--- NOTE | 2018-10-03 05:49 | EDPHY ---
H & P Stated Complaint: Mech fall then wheelchair fell on him, exposure for 15 min in snow Time Seen by Provider: 10/03/18 02:24 HPI/ROS: HPI The patient presents with fall from his wheelchair into the snow which occurred just prior to arrival, patient is brought in by ambulance. He usually resides in [place] though is visiting [facility]. He was using his wheelchair to maneuver through a snowy sidewalk when his wheelchair slipped and fell on top of him, landing on his right hip. He was in the snow for about 15 min before paramedics arrived and transported him here. His main complaint is that he feels cold though he does report some mild right hip pain. He uses a wheelchair for cerebral palsy and does have sensation in his extremities. REVIEW OF SYSTEMS 10 systems were reviewed and negative with the exception of the elements mentioned in the history of present illness. PMHx: Cerebral palsy, C8 paraplegia, uses a wheelchair at baseline, status post Noah fundoplication, Soc Hx: Usually lives in [place] PHYSICAL General Appearance: Alert, no distress Eyes: Pupils equal and round no pallor or injection ENT, Mouth: Mucous membranes moist Respiratory: There are no retractions, lungs are clear to auscultation Cardiovascular: Regular rate and rhythm Gastrointestinal: Abdomen is soft and non-tender, no masses, bowel sounds normal Neurological: A&O, extremities have increased tone, held in flexion Skin: Warm and dry, no rashes Musculoskeletal: Neck is supple non tender, lumbar spine is nontender to palpation, right hip overlying ASIS is slightly tender to palpation Extremities: symmetrical Psychiatric: Patient is oriented X 3, there is no agitation Source: Patient Exam Limitations: No limitations - Personal History Current Tetanus/Diphtheria Vaccine: Unsure Current Tetanus Diphtheria and Acellular Pertussis (TDAP): Unsure Tetanus Vaccine Date: last 10 years - Medical/Surgical History Hx Asthma: No Hx Chronic Respiratory Disease: No Hx Diabetes: No Hx Cardiac Disease: No Hx Renal Disease: No Hx Cirrhosis: No Hx Alcoholism: No Hx HIV/AIDS: No Hx Splenectomy or Spleen Trauma: No Other PMH: DEPRESSION, MIGRAINES, ANXIETY, PTSD, Cerebal Palsy, Low fundoplication, OCD, c5 quad - Social History Smoking Status: Never smoked Constitutional: Initial Vital Signs Temperature (C) 36.6 C 10/03/18 02:21 Heart Rate 69 10/03/18 02:21 Respiratory Rate 16 10/03/18 02:21 Blood Pressure 112/70 10/03/18 02:21 O2 Sat (%) 96 10/03/18 02:21 O2 Delivery Mode Room Air Allergies/Adverse Reactions: acetaminophen Allergy (Verified 10/03/18 02:21) Penicillins Allergy (Verified 10/03/18 02:21) Home Medications: Medication Instructions Recorded Zofran 08/13/16 ALPRAZolam [Alprazolam] 0.5 mg PO BID 08/18/18 Cephalexin [Keflex (*)] 500 mg PO Q6 6 Days cap 08/18/18 FLUoxetine HCL [Fluoxetine HCl] 80 mg PO DAILY 08/18/18 Ibuprofen [Motrin (*)] 600 mg PO TID PRN 08/18/18 Prazosin HCl [Prazosin HCl] 2 mg PO DAILY 08/18/18 Promethazine HCl 08/18/18 SUMAtriptan [Imitrex 50 MG (*)] 50 mg PO DAILY PRN 08/18/18 Zolpidem Tartrate [Zolpidem 5 mg PO HS PRN 08/18/18 Tartrate] Cephalexin [Keflex (RX)] 500 mg PO TID #30 cap 09/21/18 Medical Decision Making - Diagnostics Imaging Results: X-ray right hip two view shows no obvious fracture dislocation, interpreted by me, radiology interpretation is pending. Imaging: I viewed and interpreted images myself Differential Diagnosis: 28-year-old male with cerebral palsy who is wheelchair-bound presents with fall out of his wheelchair tonight into the snow. Mostly complaining of feeling cold. He does have some right hip tenderness on exam. He was given warm blankets and heat packs to warm up. His core temperature was normal. X-ray was performed and was unremarkable. He can be discharged from the emergency department. Departure - Departure Disposition: Home, Routine, Self-Care Clinical Impression: Right hip pain Fall from wheelchair Qualifiers: Encounter type: initial encounter Qualified Code(s): W05.0XXA - Fall from non- moving wheelchair, initial encounter Condition: Good Instructions: Hip Pain (ED) Additional Instructions: Please return to the emergency department if your worse in any way. Referrals: [facility],. [Clinic] - As per Instructions
== END 2018-10-03 06:15 | disposition home or self-care (01) ==
LOC: EDUNIT#
DX: M25.551 Pain in right hip (principal); G82.20 Paraplegia, unspecified; W05.0XXA Fall from non-moving wheelchair, initial encounter; Y92.480 Sidewalk as the place of occurrence of the external cause